=== PATIENT | male | born 1965 | race Caucasian/White ===

== ENCOUNTER 2020-08-19 11:20 | Emergency (ER) | payer BC, SELFPAY ==
[2020-08-19 11:29] VITALS: BP 176/96; PULSE 82; RESP 18; TEMP 37.1; O2SAT 96; BMI 29.8
--- NOTE | 2020-08-19 11:38 | W.ED.FALL ---
HPI - Fall General: Chief Complaint: Fall Stated Complaint: FALL, RIB PAIN Time Seen by Provider: 08/19/20 11:38 Source: patient Mode of arrival: ambulatory Limitations: no limitations History of Present Illness: HPI Narrative: Patient reports about 1 hour prior to arrival he slipped and fell at home landing on his left side. Patient since then has had left rib pain. Patient denies any other injury. Patient denies any routine medications. complaint: fall Onset (ago): minute(s) Fall from: standing Fall witnessed: no Place fall occurred: home Loss of consciousness: None Prolonged down time: no Symptoms prior to fall: none Context: tripped/slipped Location of injury: chest (Left rib) Severity: severe Quality: sharp Review of Systems General: Reports: 10 or more systems reviewed and unremarkable except in HPI and below Musc: Reports: other (Left rib pain) PFS ED PFSH: Social History Smoking and tobacco status: never smoked Physical Exam Const: COMMON NORMALS: no acute distress and patient oriented x3 GENERAL APPEARANCE: cooperative HENMT: COMMON NORMALS: normocephalic and Normal external nose present HEAD & SCALP: normal to inspection and normocephalic NOSE: Normal external nose present MOUTH: Normal oral and palatal mucosa present Eye: GENERAL EYE: appearance normal, both eyes and all related structures Neck/C-Spine: COMMON NORMALS: full ROM Chest: COMMONS NORMALS: normal inspection of the chest CHEST: Yes localized rib tenderness with anteroposterior compression (Left lower ribs) Breast/axilla inspection: Yes no chest deformity, asymmetry, normal contours, no nodules, masses, tenderness Resp: COMMON NORMALS: normal respiratory effort EFFORT & INSPECTION: Yes able to speak in complete sentences Cardio: COMMON NORMALS: regular rate and regular rhythm RATE: regular rate RHYTHM: regular rhythm GI: COMMON NORMALS: non-tender Back/Pelvis: COMMON NORMALS: thoracic and lumbar spine normal to inspection Extremity: COMMON NORMALS: normal to inspection Neuro: COMMON NORMALS: patient oriented x3 and moves all extremities Psych: COMMON NORMALS: mental status grossly normal and cooperative Skin: COMMON NORMALS: no rashes or lesions noted GENERAL SKIN EXAM: no rashes or lesions noted Course Vital Signs: Vital signs: Vital Signs Temperature 98.7 F 08/19/20 11:29 Pulse Rate 82 08/19/20 11:29 Respiratory Rate 18 08/19/20 11:29 Blood Pressure 176/96 08/19/20 11:29 Pulse Oximetry 96 08/19/20 11:29 MDM - Fall MDM Narrative: Medical decision making narrative: 55-year-old male patient comes in with injury to the left rib area. On exam patient is alert oriented. Patient has anterior rib tenderness. Lungs are clear to auscultation. Abdomen soft nontender. Differential diagnosis includes fracture, contusion, sprain. X-ray shows a fracture of the fourth or fifth rib anteriorly. No sign of pneumothorax. Reviewed exam with patient with recommendations for treatment and follow-up. Patient reported understanding and agreed to plan. Patient was medicated with hydrocodone with improvement in pain. Patient will be continued on hydrocodone and encouraged to use acetaminophen or ibuprofen for breakthrough pain. Patient stated understanding agreed to plan. Discharge Plan Discharge Patient Disposition: Home Clinical Impression: Fracture of rib Qualifiers: Encounter type: initial encounter Rib fracture type: single rib Fracture type: closed Laterality: left Qualified Code(s): S22.32XA - Fracture of one rib, left side, initial encounter for closed fracture Condition: Stable Prescriptions: New hydrocodone-acetaminophen 7.5-325 mg tablet 1 tab PO Q6H PRN (Reason: pain) Qty: 14 RF: 0 No Action lisinopril 10 mg tablet 10 mg PO DAILY RF: 0 sildenafil (pulm.hypertension) 20 mg tablet 20 - 40 mg PO PRN RF: 0 Discharge Orders: Discharge ED (Routine); Ordered 08/19/20 Ordered By: Skip Castillo Referrals: Laura Davidson FNP [Primary Care Provider] - Discharge Diet: Usual diet Discharge Activity: Increase activity as tolerated Patient Instructions: Rib Fracture (ED), Opioid Safety Activity Restrictions/Additional Instructions: Activity as tolerated. Use acetaminophen and ibuprofen for pain control. Use hydrocodone with acetaminophen for breakthrough pain. Use ice or heat to the area for further pain relief. Drink plenty of water with medication. Follow-up with primary care as needed. Return to the ER for new concerns. Coding Level of Care Code ED Nc Manager for [facility] Fwd Exam Comprehensive
--- NOTE | 2020-08-19 11:41 | XRR_ITS ---
PROCEDURE INFORMATION: Exam: XR Left Ribs with PA Chest Exam date and time: 08/19/2020 12:12 PM Age: 55 years old Clinical indication: Pain and injury or trauma; Fall; Rib area, left side; Blunt trauma; Chest wall pain; Additional info: Fall, left rib pain TECHNIQUE: Imaging protocol: XR Left ribs with PA chest. Views: 3 views COMPARISON: No relevant prior studies available. FINDINGS: Lungs: Unremarkable. No consolidation. Pleural spaces: Unremarkable. No pleural effusion. No pneumothorax. Heart/Mediastinum: Unremarkable. No cardiomegaly. Bones/joints: Unremarkable. XR/XR ribs LT mn 3V w CXR1V [id number] IMPRESSION: No acute findings.
--- NOTE | 2020-08-19 11:45 | PC.PHAR ---
PT STATES HE TAKES CARE OF HIS OWN MEDICATIONS-PT STATES HE HASNT TAKEN HIS LISINOPRIL FOR A WHILE PT STATES HE PICKED UP THE RX FILLED ON 08/09/20
[2020-08-19] MEDS: HYDROcodone-acetaminophen 10-325 mg Tablet 1 TAB PO (11:46)
== END 2020-08-19 12:47 | disposition home or self-care (01) ==
PROVIDERS: Emergency Provider Nurse Practitioner Family; PCP Nurse Practitioner
DX: S22.32XA Fracture of one rib, left side, initial encounter for closed fracture (principal); W01.0XXA Fall on same level from slipping, tripping and stumbling without subsequent striking against object, initial encounter
CPT/HCPCS: 71101; 99283

== ENCOUNTER 2021-04-26 20:33 | Inpatient (IN) | payer BC, SELFPAY ==
[2021-04-26] VITALS (19 sets, daily range): BP systolic 80–168; BP diastolic 47–91; PULSE 94–116; RESP 16–27; O2SAT 91–99; BMI 21.4
--- NOTE | 2021-04-26 | XRR_ITS ---
PROCEDURE INFORMATION: Exam: XR Left Shoulder Exam date and time: 04/26/2021 9:34 PM Age: 55 years old Clinical indication: Injury or trauma; Fall; Blunt trauma (contusions or hematomas); Shoulder; Left TECHNIQUE: Imaging protocol: XR Left shoulder. Views: 2 or more views. COMPARISON: No relevant prior studies available. FINDINGS: Anterior left humeral dislocation is noted. No acute fracture is detected on this single image. The AC joint appears intact. XR/XR shoulder LT 1V [id number] IMPRESSION: Anterior left humeral dislocation.
--- NOTE | 2021-04-26 20:35 | CTR_ITS ---
PROCEDURE INFORMATION: Exam: CT Head Without Contrast Exam date and time: 04/26/2021 8:35 PM Age: 55 years old Clinical indication: Speech disturbance and walking, difficulty and weakness, extremity; Other: Confusion; Additional info: Symptoms of acute stroke TECHNIQUE: Imaging protocol: Computed tomography of the head without contrast. Radiation optimization: All CT scans at this facility use at least one of these dose optimization techniques: automated exposure control; mA and/or kV adjustment per patient size (includes targeted exams where dose is matched to clinical indication); or iterative reconstruction. Other technique: STROKE PROTOCOL was implemented. COMPARISON: No relevant prior studies available. RADIATION DOSE METRICS: Total DLP (mGy-cm): 1165.5 FINDINGS: Brain: Normal. No hemorrhage or evidence of acute infarction. No mass effect. Cerebral ventricles: No ventriculomegaly. Paranasal sinuses: Moderate sinusitis changes are appreciated. Mastoid air cells: Visualized mastoid air cells are well aerated. Bones/joints: Chronic left nasal bone fracture is appreciated. No acute fracture is seen. Soft tissues: Unremarkable. CT/CT head wo con* [id number] IMPRESSION: No acute intracranial abnormality. Moderate sinusitis. ASSESSMENT: ASPECTS ([place] Stroke Program Early CT Score) is 10.
--- NOTE | 2021-04-26 20:35 | ECG_ITS ---
[facility] Test Date: 2021-04-26 Pat Name: Dick Lay Department: Room: Gender: Male Solution Developer: : 1965 Requested By: Madison Bravo Order Number: [id number] Reading MD: KEITH TRAN Measurements Intervals [place] Rate: 83 P: 40 WI: 173 QRS: -3 QRSD: 105 T: 5 QT: 381 QTc: 448 Interpretive Statements SINUS RHYTHM No previous ECG available for comparison Electronically Signed On 04-27-2021 19:57:13 DIALYSIS PATIENT CARE TECHNICIAN by KEITH TRAN [email or web address]
--- NOTE | 2021-04-26 20:35 | CTR_ITS ---
PROCEDURE INFORMATION: Exam: CT Angiography Head With Contrast, Arteriography Exam date and time: 04/26/2021 8:35 PM Age: 55 years old Clinical indication: Dizziness and giddiness and weakness and other: Confusion; Additional info: Eval for stroke TECHNIQUE: Imaging protocol: Computed tomography angiography of the head with contrast. Exam focused on the arteries. 3D rendering (Not supervised by radiologist): MIP and/or 3D reconstructed images were created by the technologist. Radiation optimization: All CT scans at this facility use at least one of these dose optimization techniques: automated exposure control; mA and/or kV adjustment per patient size (includes targeted exams where dose is matched to clinical indication); or iterative reconstruction. Contrast material: OMNI 350; Contrast volume: 95 ml; Contrast route: INTRAVENOUS (IV); COMPARISON: CT head wo con* [id number] 04/26/2021 8:34 PM RADIATION DOSE METRICS: Total DLP (mGy-cm): 2531.18 FINDINGS: ANTERIOR CIRCULATION: Right internal carotid artery: Unremarkable. Intracranial segment is patent with no significant stenosis. No aneurysm. Right middle cerebral artery: Unremarkable. No occlusion or significant stenosis. No aneurysm. Right anterior cerebral artery: Unremarkable. No occlusion or significant stenosis. No aneurysm. Left internal carotid artery: Unremarkable. Intracranial segment is patent with no significant stenosis. No aneurysm. Left middle cerebral artery: Unremarkable. No occlusion or significant stenosis. No aneurysm. Left anterior cerebral artery: Unremarkable. No occlusion or significant stenosis. No aneurysm. POSTERIOR CIRCULATION: Right vertebral artery: Unremarkable. No occlusion or significant stenosis. No aneurysm. Left vertebral artery: Unremarkable. No occlusion or significant stenosis. No aneurysm. Basilar artery: Unremarkable. No occlusion or significant stenosis. No aneurysm. Right posterior cerebral artery: Unremarkable. No occlusion or significant stenosis. No aneurysm. Left posterior cerebral artery: Unremarkable. No occlusion or significant stenosis. No aneurysm. IMPRESSION: Patent intracranial arteries. PROCEDURE INFORMATION: Exam: CT Angiography Neck With Contrast Exam date and time: 04/26/2021 8:35 PM Age: 55 years old Clinical indication: Dizziness and giddiness and weakness and other: Confusion; Additional info: Eval for stroke TECHNIQUE: Imaging protocol: Computed tomography angiography of the neck with contrast. 3D rendering (Not supervised by radiologist): MIP and/or 3D reconstructed images were created by the technologist. Radiation optimization: All CT scans at this facility use at least one of these dose optimization techniques: automated exposure control; mA and/or kV adjustment per patient size (includes targeted exams where dose is matched to clinical indication); or iterative reconstruction. Contrast material: OMNI 350; Contrast volume: 95 ml; Contrast route: INTRAVENOUS (IV); COMPARISON: CT head wo con* [id number] 04/26/2021 8:34 PM RADIATION DOSE METRICS: Total DLP (mGy-cm): 2531.18 FINDINGS: Right common carotid artery: No stenosis. No dissection or occlusion. Right internal carotid artery: No stenosis of the extracranial segment. No dissection or occlusion. Right external carotid artery: No occlusion or stenosis of the origin. Left common carotid artery: No stenosis. No dissection or occlusion. Left internal carotid artery: No stenosis of the extracranial segment. No dissection or occlusion. Left external carotid artery: No occlusion or stenosis of the origin. Right vertebral artery: No stenosis. No dissection or occlusion. Left vertebral artery: No stenosis. No dissection or occlusion. Lymph nodes: Several mildly prominent mediastinal lymph nodes are appreciated. Soft tissues: Normal. No significant soft tissue swelling. Bones/joints: No acute fracture. Lungs: Small patchy opacities are seen in both upper lobes which may be early pneumonia. A calcified granuloma is also present in the right upper lobe. CT/CT angio headneck* [id number] IMPRESSION: 1. Patent neck carotid and vertebral arteries. 2. Possible early bilateral upper lobe pneumonia. Correlate clinically. REFERENCES: NASCET CRITERIA. The degree of internal carotid artery stenosis is based on NASCET criteria. Normal is no stenosis. Mild is less than 50% stenosis. Moderate is 50-69% stenosis. Severe is 70% to 99% stenosis. Total occlusion is no detectable patent lumen.
[2021-04-26] MEDS: iohexol 350 mg/mL 100 mL Btl IV ×2 (20:52→21:22)
[2021-04-26] MEDS: morphine 4 mg/mL SDV 1 mL IVP (20:56)
--- NOTE | 2021-04-26 21:06 | CTR_ITS ---
PROCEDURE INFORMATION: Exam: CTA Chest With Contrast Exam date and time: 04/26/2021 9:06 PM Age: 55 years old Clinical indication: Cough and fever and shortness of breath; Additional info: Eval for pe TECHNIQUE: Imaging protocol: Computed tomographic angiography of the chest with contrast. 3D rendering (Not supervised by radiologist): MIP and/or 3D reconstructed images were created by the technologist. Radiation optimization: All CT scans at this facility use at least one of these dose optimization techniques: automated exposure control; mA and/or kV adjustment per patient size (includes targeted exams where dose is matched to clinical indication); or iterative reconstruction. Contrast material: OMNI 350; Contrast volume: 68 ml; Contrast route: INTRAVENOUS (IV); COMPARISON: CT angio headneck* [id number] 04/26/2021 8:40 PM RADIATION DOSE METRICS: Total DLP (mGy-cm): 579.96 FINDINGS: Pulmonary arteries: See Lungs finding. Aorta: Unremarkable. No aortic aneurysm. No aortic dissection. Lungs: Patient motion limits evaluation of bibasilar segmental and subsegmental pulmonary arteries. No pulmonary embolus is visualized. Several scattered small airspace opacities are noted which likely represent pneumonia. Subsegmental atelectasis is also seen in the left lung base. Pleural spaces: Unremarkable. No pneumothorax. No pleural effusion. Heart: The heart is normal in size. Lymph nodes: Mild bilateral hilar and mediastinal lymphadenopathy is appreciated Bones/joints: Mild degenerative changes are seen in the mid to lower thoracic spine. No acute fracture. Soft tissues: Unremarkable. CT/CT angio chest PE protcl [id number] IMPRESSION: 1. Mild patient motion. No pulmonary embolus is seen. 2. Multilobar pneumonia.
[2021-04-26 21:14] LABS: Glucose Point of Care 99 mg/dL (70-110)
[2021-04-26 21:19] LABS: Basophils % 0.3 %; Eosinophils # 0.1 10^3/uL (0.0-0.8); Eosinophils % 1.4 %; Hemoglobin 13.2 g/dL (11.7-16.6); Lymphocytes # 1.6 10^3/uL (0.8-4.8); Lymphocytes % 17.6 %; Mean Corpuscular HGB Conc 34.7 g/dL (30.0-36.0); Mean Corpuscular Hemoglobin 32.3 pg (28.0-34.0); Mean Corpuscular Volume 92.9 fl (80-94); Mean Platelet Volume 9.7 fL (7.4-10.4); Monocytes # 0.8 10^3/uL (0.2-0.9); Monocytes % 8.6 %; Neutrophils # 6.53 10^3/uL (1.8-7.7); Neutrophils % 71.4 %; Nucleated Red Blood Cells % 0 %; Platelet Count 334 10^3/cmm (130-400); Red Blood Count 4.09 10^6/uL (4.1-5.3); Red Cell Distribution Width 12.8 % (12.1-15.1); White Blood Count 9.2 10^3/uL (4.0-10.0)
[2021-04-26 21:35] LABS: Troponin(5th) Baseline 8 ng/L (0-15)
--- NOTE | 2021-04-26 21:40 | XRR_ITS ---
PROCEDURE INFORMATION: Exam: XR Left Shoulder Exam date and time: 04/26/2021 9:40 PM Age: 55 years old Clinical indication: Injury or trauma; Fall; Blunt trauma (contusions or hematomas); Shoulder; Left; Additional info: Post reduction TECHNIQUE: Imaging protocol: XR Left shoulder. Views: 2 or more views. COMPARISON: CR XR shoulder LT 1V [id number] 04/26/2021 8:46 PM FINDINGS: The anterior left shoulder dislocation is been reduced. The AC and glenohumeral joints are in good alignment. XR/XR shoulder LT min 2V* [id number] IMPRESSION: Interval reduction of the left shoulder dislocation.
[2021-04-26 21:42] LABS: Alanine Aminotransferase 57 U/L (0-41); Albumin Level 3.5 g/dL (3.5-5.2); Alkaline Phosphatase 67 IU/L (40-130); Aspartate Amino Transferase 35 U/L (0-40); Blood Urea Nitrogen 17 mg/dL (6-20); Calcium 7.7 mg/dL (8.5-10.5); Carbon Dioxide 20 mmol/L (22-29); Chloride 102 mmol/L (98-107); Glomerular Filtration Rate 100.7 mL/min (90-130); Glucose 106 mg/dL (65-115); INR 0.98 (0.8-1.2); Osmolality Calculated 290 mOsm/kg (285-295); Sodium 139 mmol/L (136-145); Total Bilirubin 0.2 mg/dL (0.15-1.2); Total Protein 5.5 g/dL (6.6-8.7)
[2021-04-26 21:43] LABS: Anion Gap 20.8 (5-19); Partial Thromboplastin Time 24.8 SECONDS (23.9-36.7); Potassium 3.8 mmol/L (3.5-5.1)
--- NOTE | 2021-04-26 21:51 | W.ED.GENADLT ---
HPI - General Adult General: Chief complaint: Neuro Symptoms/Deficit Stated complaint: stroke like symptoms Time Seen by Provider: 04/26/21 20:36 History of Present Illness: HPI narrative: Patient a 55-year-old male with recent history of COVID diagnosed on 04/17/2021 presenting to the emergency room for evaluation of new onset of seizure. Patient was walking from the kitchen to the living room when he suddenly collapsed to the ground and had episode of witnessed tonic-clonic seizure. Seizure episode lasted for 2 minutes. Patient's then contacted her neighbor who happens to be a physician and brought the patient to the emergency room. I will, patient is confused altered. EMS decided to activate a stroke alert. She has no focal deficit per EMS but continues to be altered with concern for possible brain bleed. Per , patient has never had a history of seizures. Patient continues to be confused on arrival but moving all but the L upper extremity. He is complaining of left shoulder pain. No other focal complaints on arrival to the ED. Onset:10 minutes ago Duration:10 minutes Location:home Severity:moderate/severe Associated symptoms: Deny chest pain, dyspnea, nausea, rash, palpitations or vomiting Review of Systems Const: Denies: fever(s) or chills Eyes: Denies: change in vision ENMT: Denies: mouth pain Card: Denies: chest pain or palpitations Resp: Denies: dyspnea or non-productive cough GI: Denies: abdominal pain, nausea, vomiting or diarrhea : Denies: dysuria Musc: Reports: extremity pain (L shoulder pain) Skin/Breast: Denies: rash or new lesions Neuro: Reports: other (confusion, altered mental status, + seizure) Cecilio/Lymph: Denies: easy bruising PFS ED PFSH: Social History Smoking and tobacco status: never smoked Physical Exam Const: COMMON NORMALS: alert HENMT: COMMON NORMALS: atraumatic HEAD & SCALP: atraumatic MOUTH: moist mucous membranes not abnormal Eye: COMMON NORMALS: EOMs intact bilaterally and conjunctivae normal CONJUNCTIVA: Yes conjunctivae normal Neck/C-Spine: COMMON NORMALS: full ROM and supple Resp: COMMON NORMALS: normal respiratory effort and clear to auscultation bilaterally AUSCULTATION: clear to auscultation bilaterally Cardio: COMMON NORMALS: regular rate RATE: regular rate GI: COMMON NORMALS: Soft to palpation and non-tender PALPATION: Yes Soft to palpation Extremity: COMMON NORMALS: negative for full ROM (+Gross L shoulder deformity and dislocation, inability to range the L shoul) Neuro: SENSORIUM/ORIENTATION: Yes alert MOTOR EXAM: Other motor observations present (AAOX2, AMS, moving all extremities (other than the L arm)) Psych: SPEECH: Yes incoherent MOOD & AFFECT: Yes Other affect and mood findings present (unable to assess given AMS) Procedures Central Line Placement Left Femoral: Time Out Performed: Yes Patient Placed on Monitor/Pulse Ox: Yes MD Prep: mask, gown and gloves Central Line Prep: Povidone-Iodine 1% Ultrasound Used for Placement: Yes Central Line Lumen Inserted: triple Post Procedure: sutured in place, good blood return, all ports aspirated, flushed, capped and sterile dressing applied Post Procedure X-Ray: tip of catheter in good position Patient Tolerated Procedure: well Complications: none Intubation Time out performed: Yes sedative: other (propofol) Mg Given: 100 paralytic: Succinylcholine Mg Given: 100 Laryngoscope: Jalil ET Tube Size: 7.5 ET Tube Uncuffed: Yes Tube Secured Depth (cm): 22 Tube Secured Location: teeth Tube Placement Confirmation: visualized tube passing through cords, equal breath sounds bilaterally and confirmation by capnometry Patient Tolerated Procedure: well Intubation Complications: none Lumbar Puncture Time Out Performed: Yes Patient Position: left lateral decubitus Skin Prep: Povidone-Iodine 1% Spinal Needle Gauge: 22G Interspace Used: L4-L5 Fluid Initially Obtained: other (grossly bloody) Complications: other (grossly bloody tap and sample clotted prior to running on the CSF ) Additional Comments: At 11:15 PM, I have attempted an LP. He was cleared with chlorhexadine three times. I have attempted lumbar puncture at the L4-L5 space five times. On the last time, there is grossly bloody drainage emanated from the catheter. The sample was then clotted and was unable to run the sample. I suspect that this is likely blood from the lumbar plexus and I was unable to access the CSF. Orthopedic Joint Reduction Joint #1: Time Out Performed: Yes Side: left Joint Reduction Location: shoulder Analgesia: other (4mg of morphine) Shoulder Technique Used (if applicable): other (Park technique) Post-reduction neuro exam: intact Post-reduction vascular: intact Post Reduction X-Ray Obtained: Yes Post Reduction X-Ray Results: reduced Splint Applied: No (patient is intubated and sedated) Patient Tolerated Procedure: well and no complications Course Vital Signs: Vital signs: Vital Signs Pulse Rate 110 H 04/26/21 20:35 Respiratory Rate 22 H 04/26/21 22:35 Blood Pressure 123/71 04/26/21 20:35 MDM - General Adult MDM Narrative: Medical decision making narrative: 55-year-old male presenting to the emergency room for new onset of seizure and left-sided shoulder pain. On exam, patient has a dislocation of the left shoulder. Neurovascular exam of the left affected side intact. History and exam concerning for new onset of seizure and L sided shoulder dislocation. Workup: CBC, BMP, Troponin, BNP, ECG, CXR for aspiration, CT/CTA head neck Intervention: IVF Shortly after arrival, patient was noted to be mildly hypotensive and required 2 L of fluids. Patient's blood pressure improved without any other intervention. Continues to be mildly confused but becomes more awake. He had no neurovascular deficit on the left side prior to the reduction. XR of the left upper extremity showed anterior dislocation of the shoulder. Imaging studies are negative for any acute brain bleed or aneurysm. I bedside reduction of the left anterior shoulder as location with the Park technique. Patient did nto need procedural sedation. He received 4mg of morphine prior ot the reduction Neurovascular exam post-reduction is intact. XR shoulder post reduction showed proper anterior shoulder reduction. Post-reduction, patient continues to be mildly hypoxic to 89 to 90% with this tachycardia signed passing out at the history of COVID, decision was made to order CTA to rule out PE. Patient not have any large pulmonary embolism. Around 10pm, patient suddenly went into another episode of seizure patient received 5 mg of Versed x2 without significant improvement. Patient is noted to be foaming around the mouth with blood around the lips. Patient again is unresponsive for 4 minutes. Decision was made to intubate given concerns for status epilepticus patient did not have any clear return to baseline. Refer to the procedure note for the intubation. Post intubation, patient had a central line was placed. Please refer to the procedure note for central line placement was performed currently pending. Given concern of subconvussive seizure, patient received 100 mg of ketamine IV, Keppra 1 g over 15 minutes, and is currently on a propofol and midazolam drip. S/p vancomycin and ceftriaxone for meningitis coverage. Attempted to perform a lumbar puncture but was not successful after 5 attempts. Please refer to the procedure note. Case was discussed extensively with patient's family and with recommendation for transfer to another facility. Case signed out to Dr. Gonzales pending transfer to outside hospital for status epilepticus workup. Lab Data: Labs: Lab Results 04/26/21 04/26/21 04/26/21 21:07 21:10 21:10 WBC 9.2 10^3/uL 10^3/ uL (4.0-10.0) RBC 4.09 10^6/uL L 10 ^6/uL (4.1-5.3) Hgb 13.2 g/dL g/dL (11.7-16.6) Hct 38.0 % L % (42.0-52.0) MCV 92.9 fl fl (80-94) MCH 32.3 pg pg (28.0-34.0) MCHC 34.7 g/dL g/dL (30.0-36.0) RDW 12.8 % % (12.1-15.1) Plt Count 334 10^3/cmm 10^3 /cmm (130-400) MPV 9.7 fL fL (7.4-10.4) Neut % (Auto) 71.4 % % Lymph % (Auto) 17.6 % % [place] % (Auto) 8.6 % % Eos % (Auto) 1.4 % % Baso % (Auto) 0.3 % % Neut # (Auto) 6.53 10^3/uL 10^3 /uL (1.8-7.7) Lymph # (Auto) 1.6 10^3/uL 10^3/ uL (0.8-4.8) [place] # (Auto) 0.8 10^3/uL 10^3/ uL (0.2-0.9) Eos # (Auto) 0.1 10^3/uL 10^3/ uL (0.0-0.8) Baso # (Auto) 0.0 10^3/uL 10^3/ uL (0.0-0.1) Nucleated RBC % (a uto) 0 % % Nucleated RBCs # 0.0 /100WBC /100W BC PT 13.30 SECONDS SEC ONDS (12.1-14.9) INR 0.98 (0.8-1.2) APTT 24.8 SECONDS SECO NDS (23.9-36.7) Sodium Potassium Chloride Carbon Dioxide Anion Gap BUN Creatinine GFR Calculation Glucose POC Glucose 99 mg/dL mg/dL (70-110) Calculated Osmolal ity Calcium Total Bilirubin AST ALT Alkaline Phosphata se Troponin T Baselin e Total Protein Albumin Globulin 04/26/21 04/26/21 21:10 21:10 WBC RBC Hgb Hct MCV MCH MCHC RDW Plt Count MPV Neut % (Auto) Lymph % (Auto) [place] % (Auto) Eos % (Auto) Baso % (Auto) Neut # (Auto) Lymph # (Auto) [place] # (Auto) Eos # (Auto) Baso # (Auto) Nucleated RBC % (a uto) Nucleated RBCs # PT INR APTT Sodium 139 mmol/L mmol/L (136-145) Potassium 3.8 mmol/L mmol/L (3.5-5.1) Chloride 102 mmol/L mmol/L (98-107) Carbon Dioxide 20 mmol/L L mmol/ L (22-29) Anion Gap 20.8 H (5-19) BUN 17 mg/dL mg/dL (6-20) Creatinine 0.8 mg/dL mg/dL (0.7-1.2) GFR Calculation 100.7 mL/min mL/m in (90-130) Glucose 106 mg/dL mg/dL (65-115) POC Glucose Calculated Osmolal ity 290 mOsm/kg mOsm/ kg (285-295) Calcium 7.7 mg/dL L mg/dL (8.5-10.5) Total Bilirubin 0.2 mg/dL mg/dL (0.15-1.2) AST 35 U/L U/L (0-40) ALT 57 U/L H U/L (0-41) Alkaline Phosphata se 67 IU/L IU/L (40-130) Troponin T Baselin e 8 ng/L ng/L (0-15) Total Protein 5.5 g/dL L g/dL (6.6-8.7) Albumin 3.5 g/dL g/dL (3.5-5.2) Globulin 2.0 g/dL g/dL (1.3-4.6) Imaging Data^: Other Imaging: Radiologist's impression: [address] [place], [place] [address]XMwk ReportSigned Patient: Dick Lay #: [id number]: 1965Acct#:[id number]/Sex: 55 / MADM Date: 04/26/21Loc: ERRoom/Bed:Attending Dr: Ordering Provider/Ordering MD: Madison Bravo MD Date of Service: 04/26/21 Procedure(s): XR chest 1V portable [id number] Accession Number(s): [id number] Report Number: [id number] PROCEDURE INFORMATION: Exam: XR Chest Exam date and time: 04/26/2021 10:19 PM Age: 55 years old Clinical indication: Device placement; Other: Ett and og; Additional info: Post-intubation TECHNIQUE: Imaging protocol: XR of the chest. Views: 1 view. COMPARISON: CT angio chest PE prot [id number] 04/26/2021 9:23 PM FINDINGS: An ETT is present terminating 5 cm above the sukhdev. The orogastric tube tip is in the stomach. No other significant change. XR/XR chest 1V portable [id number] IMPRESSION: See above. Dictated By:Rashaun Lara MDSigned By:Rashaun Lara MDSigned Date/Time:04/26/218DD/ [address] [address]ZRgy ReportSigned Patient: Dick Lay #: [id number]: 1965Acct#:[id number]/Sex: 55 / MADM Date: 04/26/21Loc: ERRoom/Bed:Attending Dr: Ordering Provider/Ordering MD: Madison Bravo MD Date of Service: 04/26/21 Procedure(s): XR shoulder LT min 2V* [id number] Accession Number(s): [id number] Report Number: [id number] PROCEDURE INFORMATION: Exam: XR Left Shoulder Exam date and time: 04/26/2021 9:40 PM Age: 55 years old Clinical indication: Injury or trauma; Fall; Blunt trauma (contusions or hematomas); Shoulder; Left; Additional info: Post reduction TECHNIQUE: Imaging protocol: XR Left shoulder. Views: 2 or more views. COMPARISON: CR XR shoulder LT 1V [id number] 04/26/2021 8:46 PM FINDINGS: The anterior left shoulder dislocation is been reduced. The AC and glenohumeral joints are in good alignment. XR/XR shoulder LT min 2V* [id number] IMPRESSION: Interval reduction of the left shoulder dislocation. Dictated By:Rashaun Lara MDSigned By:Rashaun Lara MDSigned Date/Time:04/26/21/ [address] [address]BM Scan ReportSigned Patient: Dick Lay #: [id number]: 1965Acct#:[id number]/Sex: 55 / MADM Date: 04/26/21Loc: ERRoom/Bed:Attending Dr: Ordering Provider/Ordering MD: Madison Bravo MD Date of Service: 04/26/21 Procedure(s): CT angio chest PE protcl [id number] Accession Number(s): [id number] Report Number: [id number] PROCEDURE INFORMATION: Exam: CTA Chest With Contrast Exam date and time: 04/26/2021 9:06 PM Age: 55 years old Clinical indication: Cough and fever and shortness of breath; Additional info: Eval for pe TECHNIQUE: Imaging protocol: Computed tomographic angiography of the chest with contrast. 3D rendering (Not supervised by radiologist): MIP and/or 3D reconstructed images were created by the technologist. Radiation optimization: All CT scans at this facility use at least one of these dose optimization techniques: automated exposure control; mA and/or kV adjustment per patient size (includes targeted exams where dose is matched to clinical indication); or iterative reconstruction. Contrast material: OMNI 350; Contrast volume: 68 ml; Contrast route: INTRAVENOUS (IV); COMPARISON: CT angio headneck* [id number] 04/26/2021 8:40 PM RADIATION DOSE METRICS: Total DLP (mGy-cm): 579.96 FINDINGS: Pulmonary arteries: See Lungs finding. Aorta: Unremarkable. No aortic aneurysm. No aortic dissection. Lungs: Patient motion limits evaluation of bibasilar segmental and subsegmental pulmonary arteries. No pulmonary embolus is visualized. Several scattered small airspace opacities are noted which likely represent pneumonia. Subsegmental atelectasis is also seen in the left lung base. Pleural spaces: Unremarkable. No pneumothorax. No pleural effusion. Heart: The heart is normal in size. Lymph nodes: Mild bilateral hilar and mediastinal lymphadenopathy is appreciated Bones/joints: Mild degenerative changes are seen in the mid to lower thoracic spine. No acute fracture. Soft tissues: Unremarkable. CT/CT angio chest PE protcl [id number] IMPRESSION: 1. Mild patient motion. No pulmonary embolus is seen. 2. Multilobar pneumonia. Dictated By:Rashaun Lara MDSigned By:Rashaun Lara MDSigned Date/Time:04/26/212146DD/ [address] [address]LB Scan ReportSigned Patient: Dick Lay #: [id number]: 1965Acct#:[id number]/Sex: 55 / MADM Date: 04/26/21Loc: ERRoom/Bed:Attending Dr: Ordering Provider/Ordering MD: Madison Bravo MD Date of Service: 04/26/21 Procedure(s): CT angio headneck* [id number] Accession Number(s): [id number] Report Number: [id number] PROCEDURE INFORMATION: Exam: CT Angiography Head With Contrast, Arteriography Exam date and time: 04/26/2021 8:35 PM Age: 55 years old Clinical indication: Dizziness and giddiness and weakness and other: Confusion; Additional info: Eval for stroke TECHNIQUE: Imaging protocol: Computed tomography angiography of the head with contrast. Exam focused on the arteries. 3D rendering (Not supervised by radiologist): MIP and/or 3D reconstructed images were created by the technologist. Radiation optimization: All CT scans at this facility use at least one of these dose optimization techniques: automated exposure control; mA and/or kV adjustment per patient size (includes targeted exams where dose is matched to clinical indication); or iterative reconstruction. Contrast material: OMNI 350; Contrast volume: 95 ml; Contrast route: INTRAVENOUS (IV); COMPARISON: CT head wo con* [id number] 04/26/2021 8:34 PM RADIATION DOSE METRICS: Total DLP (mGy-cm): 2531.18 FINDINGS: ANTERIOR CIRCULATION: Right internal carotid artery: Unremarkable. Intracranial segment is patent with no significant stenosis. No aneurysm. Right middle cerebral artery: Unremarkable. No occlusion or significant stenosis. No aneurysm. Right anterior cerebral artery: Unremarkable. No occlusion or significant stenosis. No aneurysm. Left internal carotid artery: Unremarkable. Intracranial segment is patent with no significant stenosis. No aneurysm. Left middle cerebral artery: Unremarkable. No occlusion or significant stenosis. No aneurysm. Left anterior cerebral artery: Unremarkable. No occlusion or significant stenosis. No aneurysm. POSTERIOR CIRCULATION: Right vertebral artery: Unremarkable. No occlusion or significant stenosis. No aneurysm. Left vertebral artery: Unremarkable. No occlusion or significant stenosis. No aneurysm. Basilar artery: Unremarkable. No occlusion or significant stenosis. No aneurysm. Right posterior cerebral artery: Unremarkable. No occlusion or significant stenosis. No aneurysm. Left posterior cerebral artery: Unremarkable. No occlusion or significant stenosis. No aneurysm. IMPRESSION: Patent intracranial arteries. PROCEDURE INFORMATION: Exam: CT Angiography Neck With Contrast Exam date and time: 04/26/2021 8:35 PM Age: 55 years old Clinical indication: Dizziness and giddiness and weakness and other: Confusion; Additional info: Eval for stroke TECHNIQUE: Imaging protocol: Computed tomography angiography of the neck with contrast. 3D rendering (Not supervised by radiologist): MIP and/or 3D reconstructed images were created by the technologist. Radiation optimization: All CT scans at this facility use at least one of these dose optimization techniques: automated exposure control; mA and/or kV adjustment per patient size (includes targeted exams where dose is matched to clinical indication); or iterative reconstruction. Contrast material: OMNI 350; Contrast volume: 95 ml; Contrast route: INTRAVENOUS (IV); COMPARISON: CT head con* [id number] 04/26/2021 8:34 PM RADIATION DOSE METRICS: Total DLP (mGy-cm): 2531.18 FINDINGS: Right common carotid artery: No stenosis. No dissection or occlusion. Right internal carotid artery: No stenosis of the extracranial segment. No dissection or occlusion. Right external carotid artery: No occlusion or stenosis of the origin. Left common carotid artery: No stenosis. No dissection or occlusion. Left internal carotid artery: No stenosis of the extracranial segment. No dissection or occlusion. Left external carotid artery: No occlusion or stenosis of the origin. Right vertebral artery: No stenosis. No dissection or occlusion. Left vertebral artery: No stenosis. No dissection or occlusion. Lymph nodes: Several mildly prominent mediastinal lymph nodes are appreciated. Soft tissues: Normal. No significant soft tissue swelling. Bones/joints: No acute fracture. Lungs: Small patchy opacities are seen in both upper lobes which may be early pneumonia. A calcified granuloma is also present in the right upper lobe. CT/CT angio headneck* [id number] IMPRESSION: 1. Patent neck carotid and vertebral arteries. 2. Possible early bilateral upper lobe pneumonia. Correlate clinically. REFERENCES: NASCET CRITERIA. The degree of internal carotid artery stenosis is based on NASCET criteria. Normal is no stenosis. Mild is less than 50% stenosis. Moderate is 50-69% stenosis. Severe is 70% to 99% stenosis. Total occlusion is no detectable patent lumen. Dictated By:Rashaun Laar MDSigned By:Rashaun Lara MDSigned Date/Time:04/26/212106DD/ [address] [address]AJ Scan ReportSigned Patient: Dick Lay #: [id number]: 1965Acct#:[id number]/Sex: 55 / MADM Date: 04/26/21Loc: ERRoom/Bed:Attending Dr: Ordering Provider/Ordering MD: Madison Bravo MD Date of Service: 04/26/21 Procedure(s): CT head wo con* [id number] Accession Number(s): [id number] Report Number: [id number] PROCEDURE INFORMATION: Exam: CT Head Without Contrast Exam date and time: 04/26/2021 8:35 PM Age: 55 years old Clinical indication: Speech disturbance and walking, difficulty and weakness, extremity; Other: Confusion; Additional info: Symptoms of acute stroke TECHNIQUE: Imaging protocol: Computed tomography of the head without contrast. Radiation optimization: All CT scans at this facility use at least one of these dose optimization techniques: automated exposure control; mA and/or kV adjustment per patient size (includes targeted exams where dose is matched to clinical indication); or iterative reconstruction. Other technique: STROKE PROTOCOL was implemented. COMPARISON: No relevant prior studies available. RADIATION DOSE METRICS: Total DLP (mGy-cm): 1165.5 FINDINGS: Brain: Normal. No hemorrhage or evidence of acute infarction. No mass effect. Cerebral ventricles: No ventriculomegaly. Paranasal sinuses: Moderate sinusitis changes are appreciated. Mastoid air cells: Visualized mastoid air cells are well aerated. Bones/joints: Chronic left nasal bone fracture is appreciated. No acute fracture is seen. Soft tissues: Unremarkable. CT/CT head wo con* [id number] IMPRESSION: No acute intracranial abnormality. Moderate sinusitis. ASSESSMENT: ASPECTS ([place] Stroke Program Early CT Score) is 10. Dictated By:Rashaun Lara MDSigned By:Rashaun Lara MDSigned Date/Time:04/26/212106DD/ 34 Critical Care Time Critical Care Time: Critical Care Time: Yes Total Critical Care Time: 35 Attestation: The high probability of a clinically significant, sudden or life threatening deterioration of the patient's neurological system(s) required my full and direct attention, intervention and personal management. The critical care time is as shown. This time is in addition to time spent performing any reported procedures but includes the following: [x] Data and vital sign review and interpretation [x] Patient assessment, examination and intervention [x] Documentation [x] Medication orders and management Discharge Plan Discharge Patient Disposition: Transfer to ED Clinical Impression: Altered mental status, Dislocated shoulder, Acute confusion, Grand mal status, epileptic Condition: Stable Prescriptions: No Action lisinopril 10 mg tablet 10 mg PO DAILY RF: 0 sildenafil (pulm.hypertension) 20 mg tablet 20 - 40 mg PO PRN RF: 0 hydrocodone-acetaminophen 7.5-325 mg tablet 1 tab PO Q6H PRN (Reason: pain) Qty: 14 RF: 0 Referrals: [place],Laura Rhonda, REHAB NURSE [Primary Care Provider] - Coding Level of Care Code ED Foreclosure Field Inspector for Chg Fwd Exam Comprehensive
[2021-04-26] MEDS: midazolam 1 mg/mL INJ 2 mL 6 MG ×2 (22:00)
[2021-04-26] MEDS: ketorolac 30 mg/mL INJ IVP (22:02)
--- NOTE | 2021-04-26 22:19 | CTR_ITS ---
PROCEDURE INFORMATION: Exam: CT Head Without Contrast Exam date and time: 04/26/2021 10:19 PM Age: 55 years old Clinical indication: Patient HX: Sudden onset of seizure activity. Intubated. ; Additional info: Status epilepticus TECHNIQUE: Imaging protocol: Computed tomography of the head without contrast. Radiation optimization: All CT scans at this facility use at least one of these dose optimization techniques: automated exposure control; mA and/or kV adjustment per patient size (includes targeted exams where dose is matched to clinical indication); or iterative reconstruction. COMPARISON: CT head wo con* [id number] 04/26/2021 8:34 PM RADIATION DOSE METRICS: Total DLP (mGy-cm): 735.04 FINDINGS: No significant change compared to the prior exam. No hemorrhage or evidence of acute infarction. Sinusitis changes are again seen. CT/CT head wo con* [id number] IMPRESSION: No acute intracranial abnormality.
--- NOTE | 2021-04-26 22:19 | XRR_ITS ---
PROCEDURE INFORMATION: Exam: XR Chest Exam date and time: 04/26/2021 10:19 PM Age: 55 years old Clinical indication: Device placement; Other: Ett and og; Additional info: Post-intubation TECHNIQUE: Imaging protocol: XR of the chest. Views: 1 view. COMPARISON: CT angio chest PE protcl [id number] 04/26/2021 9:23 PM FINDINGS: An ETT is present terminating 5 cm above the sukhdev. The orogastric tube tip is in the stomach. No other significant change. XR/XR chest 1V portable [id number] IMPRESSION: See above.
[2021-04-26] MEDS: propofol 10 mg/mL SDV 20 mL 100 MG IVP (22:20)
[2021-04-26] MEDS: succinylcholine 20 mg/mL SDV 10mL IVP (22:30)
[2021-04-26] MEDS: propofol 1,000 MG/100 ML INJ 31.9 MG IV (22:35)
[2021-04-27] VITALS (171 sets, daily range): BP systolic 94–144; BP diastolic 58–104; PULSE 73–105; RESP 8–31; TEMP 36.9; O2SAT 91–99
[2021-04-27 00:14] LABS: Troponin 5 2HR 17.78 ng/L (0-15); Troponin 5 2HR Delta 9.78 ABS# (0-10)
[2021-04-27 00:20] LABS: ABG PCO2 39.2 mmHg (35-45); ABG PH Result 7.36 (7.35-7.45); Arterial Blood Gas Hematocrit 41.5 % (42-52); Blood Gas Allen Test Pos; Blood Gas Sample Site Radial, right; Blood Gas Sample Type Arterial; HCO3 ABG 22.2 mmol/L (22-26); Oxygen Device VENT
[2021-04-27] MEDS: cefTRIAXone 2,000 MG in sodium chloride 0.9% (plus) 50 ML 100 MG IV (01:00)
[2021-04-27 01:13] LABS: Add Urine Microscopic? YES; Bilirubin Urine Neg (Negative); Blood Urine 2+ (Negative); Glucose Urine UA Norm (Normal); Ketones Urine Negative (Negative); Leukocyte Esterase Urine Negative (Negative); Nitrate Urine Negative (Negative); Protein Urine 1+ (Negative); Urine Color Yellow (Yellow); Urobilinogen Urine Norm (Negative); pH Urine 6.5 (5-7)
[2021-04-27 01:22] LABS: Amphetamines Screen Urine Negative (Negative); Barbiturates Screen Urine Negative (Negative); Benzodiazepines Screen Urine Negative (Negative); Cocaine Screen Urine Positive (Negative); Opiate Screen Urine Positive (Negative); PCP Screen Urine Negative (Negative); THC Screen Urine Negative (Negative)
[2021-04-27 01:27] LABS: Add Urine Culture? No; Bacteria Urine 1+ /hpf; RBC Urine 0-4 /hpf (0-2); Squamous Epithelial Cell Urine 0-4 /hpf (0-5); Uric Acid Crystals Urine 55-80 /hpf; WBC Urine 0-4 /hpf (0-5)
[2021-04-27] MEDS: vancomycin 1,000 MG in sodium chloride 0.9% 250 ML 250 MG IV (02:50)
--- NOTE | 2021-04-27 02:56 | ECG_ITS ---
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
[2021-04-27] MEDS: propofol 1,000 MG/100 ML INJ 32.25 MG IV ×4 (03:00→14:19)
[2021-04-27] MEDS: propofol 1,000 MG/100 ML INJ 31.9 MG (04:25)
--- NOTE | 2021-04-27 07:46 | W.ED.NEUROSD ---
HPI - Neuro Symptoms/Deficit General: Chief Complaint: Neuro Symptoms/Deficit Stated Complaint: stroke like symptoms Time Seen by Provider: 04/26/21 20:36 History of Present Illness: HPI Narrative: Care assumed at change of shift. Patient is waiting for facility to transfer to this point. Had discussed with Dr. Gonzales at change of shift patient continues on sedation propofol reordered. [facility] ED PFSH: Medical History Hypertension Surgical History No pertinent past surgical history Family History Other No significant active problems Social History Smoking and tobacco status: never smoked Alcohol intake: current Alcohol intake frequency: holidays/special occasions only Housing: House Course Vital Signs: Vital signs: Vital Signs Temperature 99.1 F 04/29/21 08:30 Pulse Rate 117 H 04/29/21 13:15 Respiratory Rate 14 04/29/21 13:15 Blood Pressure 121/78 04/29/21 12:15 Pulse Oximetry 85 L 04/29/21 13:30 MDM - Neuro Symptoms/Deficit MDM Narrative Medical decision making narrative: Consult hospitalist for assistance with medical management until we are able to transfer. Due to current environment and pandemic transfers have been extremely difficult to secure. Hospitalist has been consulted for medical management in the emergency room. Lab Data Result diagrams: 04/29/21 13:10 04/29/21 13:10 Labs: Lab Results 04/26/21 04/26/21 04/26/21 00:08 21:07 21:10 WBC 9.2 10^3/uL 10^3/uL (4.0-10.0) RBC 4.09 10^6/uL L 10^6/uL (4.1-5.3) Hgb 13.2 g/dL g/dL (11.7-16.6) Hct 38.0 % L % (42.0-52.0) MCV 92.9 fl fl (80-94) MCH 32.3 pg pg (28.0-34.0) MCHC 34.7 g/dL g/dL (30.0-36.0) RDW 12.8 % % (12.1-15.1) Plt Count 334 10^3/cmm 10^3/cmm (130-400) MPV 9.7 fL fL (7.4-10.4) Neut % (Auto) 71.4 % % Lymph % (Auto) 17.6 % % Schley % (Auto) 8.6 % % Eos % (Auto) 1.4 % % Baso % (Auto) 0.3 % % Neut # (Auto) 6.53 10^3/uL 10^3/uL (1.8-7.7) Lymph # (Auto) 1.6 10^3/uL 10^3/uL (0.8-4.8) Schley # (Auto) 0.8 10^3/uL 10^3/uL (0.2-0.9) Eos # (Auto) 0.1 10^3/uL 10^3/uL (0.0-0.8) Baso # (Auto) 0.0 10^3/uL 10^3/uL (0.0-0.1) Nucleated RBC % (auto) 0 % % Nucleated RBCs # 0.0 /100WBC /100WBC PT INR APTT Specimen Type Arterial Sample Site Radial, right ABG pH 7.36 (7.35-7.45) ABG pCO2 39.2 mmHg mmHg (35-45) ABG pO2 173.0 mmHg H mmHg (80.0-100.0) ABG HCO3 22.2 mmol/L mmol/L (22-26) ABG Base Excess -3.0 mmol/L L mmol/L (-2.0-2.0) Valentin Test Pos Hematocrit 41.5 % L % (42-52) O2 Delivery Device Vent FiO2 100.0 % % Tidal Volume 0.50 PEEP 8.0 cmH20 cmH20 Machine Joint Cutter ID Buttr Sodium Potassium Chloride Carbon Dioxide Anion Gap BUN Creatinine GFR Calculation Glucose POC Glucose 99 mg/dL mg/dL (70-110) Calculated Osmolality Uric Acid Calcium Total Bilirubin AST ALT Alkaline Phosphatase Troponin T Baseline Troponin T 120 Minute Delta Troponin T Total Protein Albumin Globulin Urine Color Urine Appearance Urine pH Ur Specific [place] Urine Protein Urine Glucose (UA) Urine Ketones Urine Blood Urine Nitrate Urine Bilirubin Urine Urobilinogen Ur Leukocyte Esterase Urine RBC Urine WBC Ur Squamous Epith Cells Uric Acid Crystals Amorphous Sediment Urine Bacteria Urine Opiates Screen Ur Barbiturates Screen Ur Phencyclidine Scrn Ur Amphetamines Screen U Benzodiazepines Scrn Urine Cocaine Screen U Marijuana (THC) Screen Hepatitis A IgM Ab Hep Bs Antigen Hep Bs Antibody Hep B Core Total Ab Hepatitis C Antibody HIV 1&2 Ab & HIV 1 Ag HIV 1&2 Antibody 04/26/21 04/26/21 04/26/21 21:10 21:10 21:10 WBC RBC Hgb Hct MCV MCH MCHC RDW Plt Count MPV Neut % (Auto) Lymph % (Auto) Schley % (Auto) Eos % (Auto) Baso % (Auto) Neut # (Auto) Lymph # (Auto) Schley # (Auto) Eos # (Auto) Baso # (Auto) Nucleated RBC % (auto) Nucleated RBCs # PT 13.30 SECONDS SECONDS (12.1-14.9) INR 0.98 (0.8-1.2) APTT 24.8 SECONDS SECONDS (23.9-36.7) Specimen Type Sample Site ABG pH ABG pCO2 ABG pO2 ABG HCO3 ABG Base Excess Valentin Test Hematocrit O2 Delivery Device FiO2 Tidal Volume PEEP Machine Joint Cutter ID Sodium 139 mmol/L mmol/L (136-145) Potassium 3.8 mmol/L mmol/L (3.5-5.1) Chloride 102 mmol/L mmol/L (98-107) Carbon Dioxide 20 mmol/L L mmol/L (22-29) Anion Gap 20.8 H (5-19) BUN 17 mg/dL mg/dL (6-20) Creatinine 0.8 mg/dL mg/dL (0.7-1.2) GFR Calculation 100.7 mL/min mL/min (90-130) Glucose 106 mg/dL mg/dL (65-115) POC Glucose Calculated Osmolality 290 mOsm/kg mOsm/kg (285-295) Uric Acid Calcium 7.7 mg/dL L mg/dL (8.5-10.5) Total Bilirubin 0.2 mg/dL mg/dL (0.15-1.2) AST 35 U/L U/L (0-40) ALT 57 U/L H U/L (0-41) Alkaline Phosphatase 67 IU/L IU/L (40-130) Troponin T Baseline 8 ng/L ng/L (0-15) Troponin T 120 Minute Delta Troponin T Total Protein 5.5 g/dL L g/dL (6.6-8.7) Albumin 3.5 g/dL g/dL (3.5-5.2) Globulin 2.0 g/dL g/dL (1.3-4.6) Urine Color Urine Appearance Urine pH Ur Specific [place] Urine Protein Urine Glucose (UA) Urine Ketones Urine Blood Urine Nitrate Urine Bilirubin Urine Urobilinogen Ur Leukocyte Esterase Urine RBC Urine WBC Ur Squamous Epith Cells Uric Acid Crystals Amorphous Sediment Urine Bacteria Urine Opiates Screen Ur Barbiturates Screen Ur Phencyclidine Scrn Ur Amphetamines Screen U Benzodiazepines Scrn Urine Cocaine Screen U Marijuana (THC) Screen Hepatitis A IgM Ab Hep Bs Antigen Hep Bs Antibody Hep B Core Total Ab Hepatitis C Antibody HIV 1&2 Ab & HIV 1 Ag HIV 1&2 Antibody 04/26/21 04/27/21 04/27/21 23:48 00:45 00:45 WBC RBC Hgb Hct MCV MCH MCHC RDW Plt Count MPV Neut % (Auto) Lymph % (Auto) Schley % (Auto) Eos % (Auto) Baso % (Auto) Neut # (Auto) Lymph # (Auto) Schley # (Auto) Eos # (Auto) Baso # (Auto) Nucleated RBC % (auto) Nucleated RBCs # PT INR APTT Specimen Type Sample Site ABG pH ABG pCO2 ABG pO2 ABG HCO3 ABG Base Excess Valentin Test Hematocrit O2 Delivery Device FiO2 Tidal Volume PEEP Machine Joint Cutter ID Sodium Potassium Chloride Carbon Dioxide Anion Gap BUN Creatinine GFR Calculation Glucose POC Glucose Calculated Osmolality Uric Acid Calcium Total Bilirubin AST ALT Alkaline Phosphatase Troponin T Baseline Troponin T 120 Minute 17.78 ng/L H ng/L (0-15) Delta Troponin T 9.78 ABS# ABS# (0-10) Total Protein Albumin Globulin Urine Color Yellow (Yellow) Urine Appearance Sl cloudy A (CLEAR) Urine pH 6.5 (5-7) Ur Specific [place] 1.010 (1.005-1.030) Urine Protein 1+ H (Negative) Urine Glucose (UA) Norm (Normal) Urine Ketones Negative (Negative) Urine Blood 2+ H (Negative) Urine Nitrate Negative (Negative) Urine Bilirubin Neg (Negative) Urine Urobilinogen Norm mg/dL mg/dL (Negative) Ur Leukocyte Esterase Negative (Negative) Urine RBC 0-4 /hpf H /hpf (0-2) Urine WBC 0-4 /hpf H /hpf (0-5) Ur Squamous Epith Cells 0-4 /hpf H /hpf (0-5) Uric Acid Crystals 55-80 /hpf H /hpf Amorphous Sediment Not Reportable Urine Bacteria 1+ /hpf H /hpf (NONE) Urine Opiates Screen Positive ng/mL H ng/mL (Negative) Ur Barbiturates Screen Negative ng/mL ng/mL (Negative) Ur Phencyclidine Scrn Negative ng/mL ng/mL (Negative) Ur Amphetamines Screen Negative ng/mL ng/mL (Negative) U Benzodiazepines Scrn Negative ng/mL ng/mL (Negative) Urine Cocaine Screen Positive ng/mL H ng/mL (Negative) U Marijuana (THC) Screen Negative ng/mL ng/mL (Negative) Hepatitis A IgM Ab Hep Bs Antigen Hep Bs Antibody Hep B Core Total Ab Hepatitis C Antibody HIV 1&2 Ab & HIV 1 Ag HIV 1&2 Antibody 04/27/21 04/27/21 04/27/21 09:21 09:21 09:21 WBC RBC Hgb Hct MCV MCH MCHC RDW Plt Count MPV Neut % (Auto) Lymph % (Auto) Schley % (Auto) Eos % (Auto) Baso % (Auto) Neut # (Auto) Lymph # (Auto) Schley # (Auto) Eos # (Auto) Baso # (Auto) Nucleated RBC % (auto) Nucleated RBCs # PT INR APTT Specimen Type Sample Site ABG pH ABG pCO2 ABG pO2 ABG HCO3 ABG Base Excess Valentin Test Hematocrit O2 Delivery Device FiO2 Tidal Volume PEEP Machine Joint Cutter ID Sodium Potassium Chloride Carbon Dioxide Anion Gap BUN Creatinine GFR Calculation Glucose POC Glucose Calculated Osmolality Uric Acid 5.6 mg/dL mg/dL (3.4-7.0) Calcium Total Bilirubin AST ALT Alkaline Phosphatase Troponin T Baseline Troponin T 120 Minute Delta Troponin T Total Protein Albumin Globulin Urine Color Urine Appearance Urine pH Ur Specific [place] Urine Protein Urine Glucose (UA) Urine Ketones Urine Blood Urine Nitrate Urine Bilirubin Urine Urobilinogen Ur Leukocyte Esterase Urine RBC Urine WBC Ur Squamous Epith Cells Uric Acid Crystals Amorphous Sediment Urine Bacteria Urine Opiates Screen Ur Barbiturates Screen Ur Phencyclidine Scrn Ur Amphetamines Screen U Benzodiazepines Scrn Urine Cocaine Screen U Marijuana (THC) Screen Hepatitis A IgM Ab Non-reactive (Nonreactive) Hep Bs Antigen Non-reactive (Nonreactive) Hep Bs Antibody < 3.5 L (11.5-1000) Hep B Core Total Ab Non-reactive (Nonreactive) Hepatitis C Antibody Non-reactive (Nonreactive) HIV 1&2 Ab & HIV 1 Ag Non-reactive (Non-Reactiv) HIV 1&2 Antibody Non-reactive (Non-Reactiv) 04/27/21 04/27/21 04/27/21 13:29 17:31 17:50 WBC RBC Hgb Hct MCV MCH MCHC RDW Plt Count MPV Neut % (Auto) Lymph % (Auto) Schley % (Auto) Eos % (Auto) Baso % (Auto) Neut # (Auto) Lymph # (Auto) Schley # (Auto) Eos # (Auto) Baso # (Auto) Nucleated RBC % (auto) Nucleated RBCs # PT INR APTT Specimen Type Arterial Sample Site Radial, left ABG pH 7.45 (7.35-7.45) ABG pCO2 36.1 mmHg mmHg (35-45) ABG pO2 72.5 mmHg L mmHg (80.0-100.0) ABG HCO3 24.8 mmol/L mmol/L (22-26) ABG Base Excess 1.1 mmol/L mmol/L (-2.0-2.0) Valentin Test Pos Hematocrit 43.3 % % (42-52) O2 Delivery Device Vent FiO2 50.0 % % Tidal Volume 0.50 PEEP 8.0 cmH20 cmH20 Machine Joint Cutter ID Gd Sodium Potassium Chloride Carbon Dioxide Anion Gap BUN Creatinine GFR Calculation Glucose POC Glucose 123 mg/dL H mg/dL 101 mg/dL mg/dL (70-110) (70-110) Calculated Osmolality Uric Acid Calcium Total Bilirubin AST ALT Alkaline Phosphatase Troponin T Baseline Troponin T 120 Minute Delta Troponin T Total Protein Albumin Globulin Urine Color Urine Appearance Urine pH Ur Specific [place] Urine Protein Urine Glucose (UA) Urine Ketones Urine Blood Urine Nitrate Urine Bilirubin Urine Urobilinogen Ur Leukocyte Esterase Urine RBC Urine WBC Ur Squamous Epith Cells Uric Acid Crystals Amorphous Sediment Urine Bacteria Urine Opiates Screen Ur Barbiturates Screen Ur Phencyclidine Scrn Ur Amphetamines Screen U Benzodiazepines Scrn Urine Cocaine Screen U Marijuana (THC) Screen Hepatitis A IgM Ab Hep Bs Antigen Hep Bs Antibody Hep B Core Total Ab Hepatitis C Antibody HIV 1&2 Ab & HIV 1 Ag HIV 1&2 Antibody 04/27/21 04/28/21 04/28/21 19:37 06:10 06:10 WBC 9.7 10^3/uL 10^3/uL (4.0-10.0) RBC 3.82 10^6/uL L 10^6/uL (4.1-5.3) Hgb 12.4 g/dL g/dL (11.7-16.6) Hct 37.5 % L % (42.0-52.0) MCV 98.2 fl H fl (80-94) MCH 32.5 pg pg (28.0-34.0) MCHC 33.1 g/dL g/dL (30.0-36.0) RDW 13.8 % % (12.1-15.1) Plt Count 298 10^3/cmm 10^3/cmm (130-400) MPV 9.8 fL fL (7.4-10.4) Neut % (Auto) 78.0 % % Lymph % (Auto) 11.5 % % Schley % (Auto) 9.2 % % Eos % (Auto) 0.6 % % Baso % (Auto) 0.2 % % Neut # (Auto) 7.58 10^3/uL 10^3/uL (1.8-7.7) Lymph # (Auto) 1.1 10^3/uL 10^3/uL (0.8-4.8) Schley # (Auto) 0.9 10^3/uL 10^3/uL (0.2-0.9) Eos # (Auto) 0.1 10^3/uL 10^3/uL (0.0-0.8) Baso # (Auto) 0.0 10^3/uL 10^3/uL (0.0-0.1) Nucleated RBC % (auto) 0 % % Nucleated RBCs # 0.0 /100WBC /100WBC PT INR APTT Specimen Type Sample Site ABG pH ABG pCO2 ABG pO2 ABG HCO3 ABG Base Excess Valentin Test Hematocrit O2 Delivery Device FiO2 Tidal Volume PEEP Machine Joint Cutter ID Sodium 143 mmol/L mmol/L (136-145) Potassium 3.5 mmol/L mmol/L (3.5-5.1) Chloride 108 mmol/L H mmol/L (98-107) Carbon Dioxide 25 mmol/L mmol/L (22-29) Anion Gap 13.5 (5-19) BUN 12 mg/dL mg/dL (6-20) Creatinine 1.2 mg/dL mg/dL (0.7-1.2) GFR Calculation 63.1 mL/min L mL/min (90-130) Glucose 117 mg/dL H mg/dL (65-115) POC Glucose 98 mg/dL mg/dL (70-110) Calculated Osmolality 297 mOsm/kg H mOsm/kg (285-295) Uric Acid Calcium 7.3 mg/dL L mg/dL (8.5-10.5) Total Bilirubin AST ALT Alkaline Phosphatase Troponin T Baseline Troponin T 120 Minute Delta Troponin T Total Protein Albumin Globulin Urine Color Urine Appearance Urine pH Ur Specific [place] Urine Protein Urine Glucose (UA) Urine Ketones Urine Blood Urine Nitrate Urine Bilirubin Urine Urobilinogen Ur Leukocyte Esterase Urine RBC Urine WBC Ur Squamous Epith Cells Uric Acid Crystals Amorphous Sediment Urine Bacteria Urine Opiates Screen Ur Barbiturates Screen Ur Phencyclidine Scrn Ur Amphetamines Screen U Benzodiazepines Scrn Urine Cocaine Screen U Marijuana (THC) Screen Hepatitis A IgM Ab Hep Bs Antigen Hep Bs Antibody Hep B Core Total Ab Hepatitis C Antibody HIV 1&2 Ab & HIV 1 Ag HIV 1&2 Antibody Discharge Plan Discharge Patient Disposition: Transfer to ED Admit Provider: Mary Ann Echeverria Clinical Impression: Altered mental status, Dislocated shoulder, Acute confusion, Grand mal status, epileptic Condition: Stable Sign Out Sign Out Data: Patient Sign Out occurred on 04/27/21 at 07:45. Patient's care was discussed, and care was transferred from to Nathan Rogers DO. Coding Level of Care Code ED Assistant Manager Retail for Raven Vasquez
--- NOTE | 2021-04-27 08:16 | P.CONIM_ITS ---
Providers/Reason For Consult Consulting Physician/Specialty*: Hospitalist service Reason for Consult*: Comanage in the ER Primary Care Provider: CELY Sanchez History of Present Illness History of Present Illness Dick Lay is a 55 year old male who was tested positive for COVID-19 a week ago on Thursday, 5 is at the bedside who is providing history, patient is intubated and sedated for DTs. Likely stating that they went to the [facility] on Thursday, they came home and after fixing supper she noticed that her was making weird noises, after a while he fell on the floor started shaking badly. They called Dr. Morrow who is their neighbor called 911. Witnessed seizure episode, it lasted for about 5 minutes. is stating that her does not smoke, drink occasionally, they have previous history of recreational drug abuse however recently no such usage. In the ER he was intubated, unsuccessful LP attempt he was given vancomycin, ceftriaxone CBC, BMP unremarkable, U tox positive for cocaine He was loaded with Keppra as well, Hospitalist service requested as a consult to comanage patient well awaiting transfer out of the ER because of lack of ICU beds I requested Dr. Trujillo to continue Keppra 1 g daily, I have added vancomycin, imipenem, currently he is requiring norepinephrine for hypotension I will request another ABG Noticed cloudy urine, requested HIV panel and hepatitis panel Review of Systems General: Reports: ROS unobtainable due to endotracheal tube Medications/Allergies Home Medications Medication Instructions Recorded Confirmed Last Taken Type hydrocodone-acetaminophen 1 tab PO Q6H PRN #14 tab 08/19/20 04/27/21 Unknown Rx lisinopril 10 mg PO DAILY 08/19/20 04/27/21 Unknown History sildenafil (pulm.hypertension) 20 - 40 mg PO PRN 08/19/20 04/27/21 Unknown History Allergies Allergy/AdvReac Type Severity Reaction Status Date / Time No Known Allergies Allergy Verified 04/26/21 21:35 Current Medications Generic Name Dose Route Start Last Admin Trade Name Freq PRN Reason Stop Dose Admin Norepinephrine Bitartrate 4 mg 254 mls @ 0 mls/hr 04/26/21 21:15 04/26/21 23:05 / Dextrose IV 2 mcg/min .Q0M RICKY 7.62 mls/hr Administration Protocol Per Protocol Propofol 1,000 mg in 100 mls @ 0 mls/hr 04/26/21 22:30 04/27/21 06:30 Diprivan IV Infused .Q0M RICKY Titration Protocol Per Protocol Propofol 1,000 mg in 100 mls @ 0 mls/hr 04/26/21 22:30 04/27/21 02:50 Diprivan IV Infused .Q0M RICKY Titration Protocol As Directed Midazolam HCl 100 mg/ Sodium 100 mls @ 0 mls/hr 04/26/21 23:00 04/27/21 07:27 Chloride IV 3 mg/hr .Q0M RICKY 3 mls/hr Administration Protocol Per Protocol PFSH Acute PFSH: Medical History (Updated 04/27/21 @ 12:22 by Mary Ann Echeverria MD) Hypertension Surgical History (Updated 04/27/21 @ 12:22 by Mary Ann Echeverria MD) No pertinent past surgical history Family History (Updated 04/27/21 @ 12:23 by Mary Ann Echeverria MD) Other No significant active problems Social History (Updated 04/27/21 @ 12:23 by Mary Ann Echeverria MD) Smoking and tobacco status: never smoked Alcohol intake: current Alcohol intake frequency: holidays/special occasions only Substance/Drug Use: former Housing: House Vitals/I&O/Wt Last Vital Signs Pulse 92 04/27/21 06:45 Resp 16 04/27/21 07:30 BP 132/81 04/27/21 06:45 Pulse Ox 97 04/27/21 06:45 04/26/21 04/27/21 04/27/21 22:59 06:59 14:59 Intake Total 310 / 310 510.000 / 510.000 Balance 310 / 310 510.000 / 510.000 Weight last 48 hrs Weight 71.668 kg Physical Exam Narrative: EXAM NARRATIVE: Middle-age male Intubated and sedated Right at the bedside Bilateral breath sounds which are assisted Abdomen soft Left femoral line which needs dressing change No signs of cyanosis or gangrene of foot No signs of edema Pupils are pinpoint S1, S2 Hemodynamically stable Urinary Catheter Management^: Chew: Cath Placed During This Visit: yes Reason for Continuing Indwelling Catheter: Accurate Measurement of Urinary Output in Critically Ill Patients Urinary Catheter Date of Insertion: 04/26/21 Urinary Catheter Time of Insertion: 23:00 A&P Assessment and plan (1) Altered mental status: Status: Acute (2) Dislocated shoulder: Status: Acute (3) Acute confusion: Status: Acute (4) Grand mal status, epileptic: Status: Acute Additional A&P Information New onset seizure CT head unremarkable Shoulder dislocation status postreduction Hypotensive related to propofol requiring vasopressors Would recommend continuing Keppra 1 g daily And add vancomycin and imipenem, unsuccessful lumbar puncture attempt, COVID-19 related encephalopathy, seizure activity? No active signs of mass, no midline shift on CT head No severe electrolyte imbalance other than hypocalcemia which I have repleted U tox positive for cocaine however patient's seems very surprised and denying recreational drug abuse of her Requested hepatitis and HIV panel DVT prophylaxis: Lovenox N.p.o. Awaiting transfer out of the ER because of lack of ICU bed availability EKG is unremarkable, troponin not significantly high Consult Attestations Medical Necessity Statement: Needs ICU transfer, outside facility Time Spent in Patient Care: Greater than 35 minutes Coding Level of Care Code Acute Business Intelligence Architect for g Fwd Diagnoses Altered mental status R41.82 Dislocated shoulder S43.006A Acute confusion R41.0 Grand mal status, epileptic G40.401
[2021-04-27] MEDS: dextrose 50% syringe 50 mL 25 ML IVP (08:42)
[2021-04-27] MEDS: calcium gluconate 0.9% NaCL 1 GM/50 ML PREMIX IV (08:46)
[2021-04-27 09:56] LABS: Uric Acid 5.6 mg/dL (3.4-7.0)
--- NOTE | 2021-04-27 10:22 | PC.NURSE ---
PATIENT RESTRAINTS MONITORED. CIRCULATION INTACT. CAP REFILL LESS THAN 3 SECONDS IN ALL FOUR EXTREMITIES.
[2021-04-27 10:32] LABS: HIV 1 & 2 Antibody Non-Reactive (Non-Reactiv); HIV 1 & 2 Antigen Non-Reactive (Non-Reactiv)
[2021-04-27 10:38] LABS: Hepatitis A Antibody IgM Non-Reactive (Nonreactive); Hepatitis B Core AB, Total Non-Reactive (Nonreactive); Hepatitis B Surface Antigen Non-Reactive (Nonreactive); Hepatitis C Virus Antibody Non-Reactive (Nonreactive)
[2021-04-27 10:43] LABS: Hepatitis B Surface AB < 3.5 (11.5-1000)
[2021-04-27] MEDS: enoxaparin 40 mg/0.4 mL Syringe SUBCUT (13:18)
[2021-04-27] MEDS: vancomycin 1,250 MG/250 ML PIGGYBACK 250 MG IV (13:18)
--- NOTE | 2021-04-27 13:25 | PC.NURSE ---
NURSE UNABLE TO ASSESS PAIN DUE TO SEDATION. SOFT RESTRAINTS CHECKED. CIRCULATION INTACT. CAP REFILL UNDER 3 SECONDS.
[2021-04-27 13:31] LABS: Glucose Point of Care 123 mg/dL (70-110)
[2021-04-27 17:35] LABS: Glucose Point of Care 101 mg/dL (70-110)
[2021-04-27 18:07] LABS: ABG PCO2 36.1 mmHg (35-45); ABG PH Result 7.45 (7.35-7.45); Arterial Blood Gas Hematocrit 43.3 % (42-52); Base Excess ABG 1.1 mmol/L (-2.0-2.0); Blood Gas Allen Test Pos; Blood Gas Operator Identificat GD; Blood Gas Sample Site Radial, left; Blood Gas Sample Type Arterial; HCO3 ABG 24.8 mmol/L (22-26); Oxygen Device VENT; PO2 ABG 72.5 mmHg (80.0-100.0)
--- NOTE | 2021-04-27 18:38 | PC.NURSE ---
UNABLE TO ASSESS PATIENT PAIN DUE TO PATIENT SEDATION. RAMIREZ CATHETER DRAINED 1000 ML OUT. SOFT RESTRAINTS CHECKED. CIRCULATION INTACT, CAP REFILL LESS THAN 3 SECONDS. PATIENT MADE COMFORTABLE.
[2021-04-27] MEDS: propofol 1,000 MG/100 ML INJ 34.4 MG IV ×2 (19:05→22:12)
[2021-04-27 20:07] LABS: Glucose Point of Care 98 mg/dL (70-110)
[2021-04-28] VITALS (74 sets, daily range): BP systolic 71–134; BP diastolic 56–88; PULSE 88–150; RESP 12–24; TEMP 37.2–38.1; O2SAT 92–96; BMI 21.4
[2021-04-28] MEDS: propofol 1,000 MG/100 ML INJ 32.25 MG IV (01:05)
[2021-04-28] MEDS: vancomycin 1,250 MG/250 ML PIGGYBACK 250 MG IV ×2 (02:15→13:49)
--- NOTE | 2021-04-28 03:09 | PC.NURSE ---
this nurse spoke with daughter of the patient on the evening of 04/27/21; she asked this nurse who was in charge of her fathers care if a medical emergency occurred. this nurse spoke with the house calls nurse and relayed to pt daughter that if a medical emergency were to occur it would be immediate family who would be the decision makers since the pt and his life partner have no legal agreement. daughter verbalized understanding.
--- NOTE | 2021-04-28 03:39 | PC.NURSE ---
Addendum entered by Brooke Bruce RN 04/28/21 03:42: accuchecks Original Note: this nurse contacted dr topete to cancel order for 2h accuchecks. since pt is not a diabetic, physician ok'd order.
--- NOTE | 2021-04-28 04:12 | PC.NURSE ---
pt bedding/ urinary cath this nurse, jonh jaimes, and esther jaimes changed pt bedding around [place] [id number]. at this time we noticed urine was leaking around the catheter so the catheter was changed out. the catheter tubing was full of sediment so it was probable there was a blockage in the catheter.
[2021-04-28] MEDS: propofol 1,000 MG/100 ML INJ 27.95 MG IV (04:26)
[2021-04-28 06:19] LABS: Basophils % 0.2 %; Eosinophils # 0.1 10^3/uL (0.0-0.8); Eosinophils % 0.6 %; Hematocrit 37.5 % (42.0-52.0); Hemoglobin 12.4 g/dL (11.7-16.6); Lymphocytes # 1.1 10^3/uL (0.8-4.8); Lymphocytes % 11.5 %; Mean Corpuscular HGB Conc 33.1 g/dL (30.0-36.0); Mean Corpuscular Hemoglobin 32.5 pg (28.0-34.0); Mean Corpuscular Volume 98.2 fl (80-94); Mean Platelet Volume 9.8 fL (7.4-10.4); Monocytes # 0.9 10^3/uL (0.2-0.9); Monocytes % 9.2 %; Neutrophils # 7.58 10^3/uL (1.8-7.7); Nucleated Red Blood Cells % 0 %; Platelet Count 298 10^3/cmm (130-400); Red Blood Count 3.82 10^6/uL (4.1-5.3); Red Cell Distribution Width 13.8 % (12.1-15.1); White Blood Count 9.7 10^3/uL (4.0-10.0)
[2021-04-28 06:36] LABS: Anion Gap 13.5 (5-19); Blood Urea Nitrogen 12 mg/dL (6-20); Calcium 7.3 mg/dL (8.5-10.5); Carbon Dioxide 25 mmol/L (22-29); Chloride 108 mmol/L (98-107); Glomerular Filtration Rate 63.1 mL/min (90-130); Glucose 117 mg/dL (65-115); Osmolality Calculated 297 mOsm/kg (285-295); Potassium 3.5 mmol/L (3.5-5.1); Sodium 143 mmol/L (136-145)
[2021-04-28] MEDS: propofol 1,000 MG/100 ML INJ 25.8 MG IV ×2 (07:58→12:30)
[2021-04-28] MEDS: propofol 1,000 MG/100 ML INJ 21.5 MG IV (16:49)
--- NOTE | 2021-04-28 17:06 | P.HP_ITS ---
Providers/Chief Complaint Primary Care Provider: CELY Sanchez Chief Complaint: stroke like symptoms History of Present Illness History of Present Illness Dick Lay is a 55 year old male who was tested positive for COVID-19 a week ago on Thursday, 5 is at the bedside who is providing history, patient is intubated and sedated for DTs. Likely stating that they went to the [facility] on Thursday, they came home and after fixing supper she noticed that her was making weird noises, after a while he fell on the floor started shaking badly. They called Dr. Morrow who is their neighbor called 911. Witnessed seizure episode, it lasted for about 5 minutes. is stating that her does not smoke, drink occasionally, they have previous history of recreational drug abuse however recently no such usage. In the ER he was intubated, unsuccessful LP attempt he was given vancomycin, ceftriaxone CBC, BMP unremarkable, U tox positive for cocaine He was loaded with Keppra as well, Hospitalist service requested as a consult to comanage patient well awaiting transfer out of the ER because of lack of ICU beds I requested Dr. Trujillo to continue Keppra 1 g daily, I have added vancomycin, imipenem, currently he is requiring norepinephrine for hypotension I will request another ABG Noticed cloudy urine, requested HIV panel and hepatitis panel Review of Systems General: Reports: ROS unobtainable due to endotracheal tube Medications/Allergies Home Medications Medication Instructions Recorded Confirmed Last Taken Type hydrocodone-acetaminophen 1 tab PO Q6H PRN #14 tab 08/19/20 04/27/21 Unknown Rx lisinopril 10 mg PO DAILY 08/19/20 04/27/21 Unknown History sildenafil (pulm.hypertension) 20 - 40 mg PO PRN 08/19/20 04/27/21 Unknown History Allergies Allergy/AdvReac Type Severity Reaction Status Date / Time No Known Allergies Allergy Verified 04/26/21 21:35 PFSH Acute PFSH: Medical History Hypertension Surgical History No pertinent past surgical history Family History Other No significant active problems Social History Smoking and tobacco status: never smoked Alcohol intake: current Alcohol intake frequency: holidays/special occasions only Substance/Drug Use: former Housing: House Vitals/I&O/Wt Last Vital Signs Temp 99 F 04/28/21 07:12 Pulse 90 04/28/21 16:00 Resp 20 H 04/28/21 16:00 BP 113/67 04/28/21 16:00 Pulse Ox 95 04/28/21 16:00 04/28/21 04/28/21 04/28/21 06:59 14:59 22:59 Intake Total 886.627 / 2523.312 388.26 / 388.26 342.808 / 731.068 Output Total 1515 / 1515 Balance 886.627 / 2523.312 -1126.74 / -1126.74 342.808 / -783.932 Weight last 48 hrs Weight 71.668 kg Physical Exam Narrative: EXAM NARRATIVE: Middle-age male Intubated and sedated FiO2 50%, PEEP 8 Minimal vent settings, Propofol 30, fentanyl 50, midazolam at 6 Norepinephrine at 2 Abdomen soft, bowel sounds sluggish Concentrated urine in the urine bag Bilateral assisted breath sounds S1, S2 Urinary Catheter Management^: Chew: Cath Placed During This Visit: yes Reason for Continuing Indwelling Catheter: Required Immobilization for Trauma or Surgery or Anesthesia Urinary Catheter Date of Insertion: 04/27/21 Urinary Catheter Time of Insertion: 22:00 Data : 04/28/21 06:10 04/28/21 06:10 Micro: Microbiology 04/27/21 07:35 Gram Stain - Final Sputum - Endotracheal Tube Aspirate Sputum Culture - Preliminary 04/27/21 09:25 Blood Culture - Preliminary Blood NEGATIVE TO DATE 04/27/21 09:21 Blood Culture - Preliminary Blood NEGATIVE TO DATE A&P Assessment and plan (1) Respiratory failure requiring intubation: Status: Acute (2) Altered mental status: Status: Acute (3) Dislocated shoulder: Status: Acute (4) Acute confusion: Status: Acute (5) Grand mal status, epileptic: Status: Acute Additional A&P Information New onset seizure CT head unremarkable Shoulder dislocation status postreduction Hypotensive related to propofol requiring vasopressors Would recommend continuing Keppra 1 g daily And add vancomycin and imipenem, unsuccessful lumbar puncture attempt, COVID-19 related encephalopathy, No active signs of mass, no midline shift on CT head No severe electrolyte imbalance other than hypocalcemia which I have repleted U tox positive for cocaine however patient's seems very surprised and denying recreational drug abuse of her Requested hepatitis and HIV panel DVT prophylaxis: Lovenox N.p.o. EKG is unremarkable, troponin not significantly high Admitted to our ICU, Start weaning trial tomorrow morning on 04/29 Turn off sedation, sedation vacation overnight start weaning trial at 4 AM No severe electrolyte imbalance Minimal vent settings Hypocalcemia: Repleted Attestations Medical Necessity Statement*: More than 2 midnights anticipated Time Spent in Patient Care: Greater than 35 minutes Coding Level of Care Code Acute Field Appraiser for [facility] Diagnoses Respiratory failure requiring intubation J96.90 Altered mental status R41.82 Dislocated shoulder S43.006A Acute confusion R41.0 Grand mal status, epileptic G40.401
[2021-04-28] MEDS: sodium chloride 0.9% 1,000 ML 999 ML IV (18:45)
--- NOTE | 2021-04-28 19:00 | PC.NURSE ---
MAR Upon assessment, versed running at 4 mg/hr and fentanyl running at 50 mcg/hr while MAR displays different rates. MAR updated to reflect administration.
[2021-04-28] MEDS: calcium gluconate 0.9% NaCL 1 GM/50 ML PREMIX IV (19:41)
[2021-04-28] MEDS: sodium chlor 0.9% + KCl 20 mEq 20 MEQ/1,000 ML BAG 75 MEQ IV (20:18)
[2021-04-28 23:01] LABS: Glucose Point of Care 106 mg/dL (70-110)
[2021-04-29] VITALS (57 sets, daily range): BP systolic 107–137; BP diastolic 64–88; PULSE 74–147; RESP 11–24; TEMP 37.2–38.2; O2SAT 72–100
--- NOTE | 2021-04-29 00:38 | PC.NURSE ---
Temperature Patient temperature 100.8 axillary. Patient's blankets removed, room temperature decreased. Will monitor.
[2021-04-29] MEDS: propofol 1,000 MG/100 ML INJ 15.05 MG IV (00:56)
[2021-04-29 01:31] LABS: Vancomycin Trough 10.1 ug/mL (10-15)
[2021-04-29] MEDS: vancomycin 1,250 MG/250 ML PIGGYBACK 250 MG IV (01:37)
--- NOTE | 2021-04-29 01:47 | PC.PHAR ---
Pharmacokinetic dosing service Date: 04/29/21 Time: 0200 Patient: Floor: Weight: 71.668 Kilograms Vancomycin single level analysis: Current dose being given: mg Current dosing interval: hrs Current infusion time (hrs): 1 Single level Trough Data: Trough level obtained: 10.1 mcg/ml Timing of trough - # of hrs before next dose: 0.08 Hrs Desired peak: 40 mcg/ml Desired trough: 15 mcg/ml Diagnosis: Relevant medical/social history: Cultures and sensitivities: Other labs: Estimated PK Parameters: New rate constant (mello): 0.090 hr-1 Half-life: 7.70 Hours Vd from levels: 64.50 Liters (0.7 L/kg) CLvanco= 5.805 L/hr Estimated New Dose and Interval Recommended dose: 1773.4 mg Recommended interval: 11.9 Hrs Patient response: Patient is responding to treatment [yes/no] wbc decreasing, S/SX reduced [yes/no] Renal function is stable/unstable Recommendations: Give Vancomycin 1500 mg q 12 hrs. Infuse over 1..5 hrs Expected Cpeak: 33.7 mcg/mL Expected Ctrough: 12.5 mcg/mL AUC 0-24 /JOSH Data: JOSH 0.5 mcg/mL: AUC/JOSH: 1033.6 JOSH 1.0 mcg/mL: AUC/JOSH: 516.8 Recommended labs and intervals: Measure Bun and Scr 3 times/week. Renal dosing of other antibiotics (review renal dosing of other medications and list guidelines here): Thank you for the consult, will continue to follow. Signature:
Lindsay Molina [facility]
[2021-04-29 03:33] LABS: Glucose Point of Care 105 mg/dL (70-110)
--- NOTE | 2021-04-29 03:35 | PC.NURSE ---
Family Updates Son, Alessio Lay, and life partner, Portia, called at 2100 and 2200 respectively, both receiving updates on patient. Son requested drug testing to verify previous results; Dr. Cardenas contacted and received order for secondary testing. Both family members verbalized understanding and stated no further questions.
[2021-04-29 03:48] LABS: ABG PCO2 42.9 mmHg (35-45); ABG PH Result 7.39 (7.35-7.45); Arterial Blood Gas Hematocrit 34.8 % (42-52); Base Excess ABG 0.6 mmol/L (-2.0-2.0); Blood Gas Allen Test Pos; Blood Gas Sample Site Radial, right; Blood Gas Sample Type Arterial; HCO3 ABG 25.8 mmol/L (22-26); Oxygen Device VENT; PO2 ABG 74.5 mmHg (80.0-100.0)
[2021-04-29 04:55] LABS: Basophils % 0.3 %; Eosinophils % 0.4 %; Hematocrit 33.9 % (42.0-52.0); Lymphocytes # 0.9 10^3/uL (0.8-4.8); Lymphocytes % 8.5 %; Mean Corpuscular HGB Conc 32.4 g/dL (30.0-36.0); Mean Corpuscular Hemoglobin 32.2 pg (28.0-34.0); Mean Corpuscular Volume 99.1 fl (80-94); Mean Platelet Volume 10.1 fL (7.4-10.4); Monocytes # 0.9 10^3/uL (0.2-0.9); Monocytes % 8.3 %; Neutrophils # 8.49 10^3/uL (1.8-7.7); Nucleated Red Blood Cells % 0 %; Platelet Count 228 10^3/cmm (130-400); Red Blood Count 3.42 10^6/uL (4.1-5.3); Red Cell Distribution Width 13.9 % (12.1-15.1); White Blood Count 10.4 10^3/uL (4.0-10.0)
[2021-04-29 05:12] LABS: Amphetamines Screen Urine Negative (Negative); Barbiturates Screen Urine Negative (Negative); Benzodiazepines Screen Urine Negative (Negative); Cocaine Screen Urine Negative (Negative); Opiate Screen Urine Positive (Negative); PCP Screen Urine Negative (Negative); THC Screen Urine Negative (Negative)
[2021-04-29 05:24] LABS: Blood Urea Nitrogen 14 mg/dL (6-20); Calcium 6.9 mg/dL (8.5-10.5); Carbon Dioxide 21 mmol/L (22-29); Chloride 111 mmol/L (98-107); Glomerular Filtration Rate 87.9 mL/min (90-130); Glucose 105 mg/dL (65-115); Magnesium 2.5 mg/dL (1.7-2.3); Osmolality Calculated 299 mOsm/kg (285-295); Phosphorus 2.8 mg/dL (2.5-4.5); Prolactin 15.01 ng/mL (4.0-15.2); Sodium 144 mmol/L (136-145)
[2021-04-29] MEDS: propofol 1,000 MG/100 ML INJ 17.2 MG IV ×2 (06:22→11:48)
[2021-04-29 07:33] LABS: Glucose Point of Care 105 mg/dL (70-110)
[2021-04-29] MEDS: dexamethasone 10 mg/mL INJ 6 MG IVP (08:27)
[2021-04-29] MEDS: folic acid 1 mg Tablet PO (08:27)
[2021-04-29] MEDS: calcium gluconate 0.9% NaCL 1 GM/50 ML PREMIX IV (08:28)
[2021-04-29] MEDS: remdesivir 200 MG in sodium chloride 0.9% (100 ml) 60 ML 100 MG IV (08:37)
--- NOTE | 2021-04-29 09:23 | PM.PN ---
Subjective Subjective: Interval history: FiO2 30% PEEP 8 Off vasopressors Afebrile No CBC or BMP abnormality noted Plan to extubate him today Weaning trial Updated RN and the RT Continue IV Keppra Start Precedex and wean off propofol and fentanyl, midazolam turned off this morning Urine output and color improved with fluid bolus yesterday Vitals/I&O/Wt Last Vital Signs Temp 98.9 F 04/29/21 07:00 Pulse 81 04/29/21 08:15 Resp 14 04/29/21 06:00 BP 108/64 04/29/21 08:15 Pulse Ox 94 04/29/21 08:15 04/28/21 04/29/21 04/29/21 22:59 06:59 14:59 Intake Total 2019.442 / 2407.702 475.943 / 2883.645 Output Total 300 / 1815 575 / 2390 Balance 1719.442 / 592.702 -99.057 / 493.645 Weight last 48 hrs Weight 71.668 kg Physical Exam Narrative: EXAM NARRATIVE: Patient intubated and sedated Normal hemodynamically Off vasopressors Looks euvolemic S1, S2 sinus rhythm Neuro exam limited Bilateral assisted breaths on Abdomen soft No signs of edema Urinary Catheter Management^: Chew: Cath Placed During This Visit: yes Reason for Continuing Indwelling Catheter: Accurate Measurement of Urinary Output in Critically Ill Patients Urinary Catheter Date of Insertion: 04/27/21 Urinary Catheter Time of Insertion: 22:00 Data : 04/29/21 04:10 04/29/21 04:10 Micro: Microbiology 04/27/21 07:35 Gram Stain - Final Sputum - Endotracheal Tube Aspirate Sputum Culture - Preliminary 04/27/21 09:25 Blood Culture - Preliminary Blood NEGATIVE TO DATE 04/27/21 09:21 Blood Culture - Preliminary Blood NEGATIVE TO DATE A&P Assessment and plan (1) Respiratory failure requiring intubation: Status: Acute (2) Altered mental status: Status: Acute (3) Dislocated shoulder: Status: Acute (4) Acute confusion: Status: Acute (5) Grand mal status, epileptic: Status: Acute Additional A&P Information Today my plan is to do sedation vacation, weaning trial and then extubate Off vasopressors since yesterday Responded very well to 1 L bolus that I gave yesterday which improved urine output and blood pressure Continue Keppra Continue broad-spectrum antibiotics and de-escalate by tomorrow if stays afebrile Reassess neurological status, no significant leukocytosis or febrile episodes, meningitis was another one of her differentials with new onset of seizures Dislocated shoulder status post reduction Speech therapy after extubation He has not eaten in the last 48 hours Blood sugar is normal Repeat drug screen did not reveal cocaine, earlier false positive result? Continue DVT prophylaxis Start feeding him today after speech therapy We will update his Will need outpatient neurology follow-up For COVID-19, start Decadron and remdesivir Attestations Medical Necessity Statement*: Extubated today Time Spent in Patient Care: 16 - 35 minutes Coding Level of Care Code Acute Hobbies [employer] Crafts Sales Representative for [facility] Fwd Diagnoses Respiratory failure requiring intubation J96.90 Altered mental status R41.82 Dislocated shoulder S43.006A Acute confusion R41.0 Grand mal status, epileptic G40.401
--- NOTE | 2021-04-29 10:03 | DCPLANNER ---
Addendum entered by Nivia Champagne 04/30/21 06:48: This referral was cancelled due to that patient . Original Note: senior center manager had message to schedule a follow up appointment for patient with ortho. senior center manager emailed patients information to Lucia Santos at ortho. Patients information will be printed and reviewed. Clinic will call patient with appointment information.
[2021-04-29 10:12] LABS: Parathyroid Hormone 88.9 pg/mL (15-65)
[2021-04-29 10:22] LABS: 25 Hydroxy Vitamin D 16 ng/mL (30-100)
--- NOTE | 2021-04-29 12:39 | XR_ITS ---
WS: [id number] Exam: XR chest 1V portable [id number] Date/Time of Exam: 04/29/2021 12:42 PM Reason For Exam: Intubated/possible pneumonthorax, O2 sats declining. Comparison 04/26/2021. An ET tube has been placed and ends at about the level of T4 in good position. The lungs are well dale tilated as visualized. Heart size is normal. An enteric tube is looped in the stomach. Monitoring rashmi ds are seen over the left lower chest and upper left abdomen. Mild bilateral plaque atelectasis. XR/XR chest 1V portable [id number] IMPRESSION: 1. ET tube in satisfactory position. Enteric tube looped in the stomach. 2. No acute cardiopulmonary finding.
[2021-04-29] MEDS: EPINEPHrine 2.5 MG in sodium chloride 0.9% 250 ML 434.31 MG IV (12:40)
[2021-04-29] MEDS: LORazepam 2 mg/mL INJ 1 mL 1 MG IVP (13:40)
[2021-04-29] MEDS: morphine 4 mg/mL SDV 1 mL 2 MG IVP (13:40)
[2021-04-29 13:44] LABS: Basophils # 0.1 10^3/uL (0.0-0.1); Basophils % 0.6 %; Eosinophils % 0.2 %; Hematocrit 35.1 % (42.0-52.0); Hemoglobin 10.6 g/dL (11.7-16.6); Lymphocytes # 2.4 10^3/uL (0.8-4.8); Lymphocytes % 22.2 %; Mean Corpuscular HGB Conc 30.2 g/dL (30.0-36.0); Mean Corpuscular Hemoglobin 32.6 pg (28.0-34.0); Mean Platelet Volume 10.3 fL (7.4-10.4); Monocytes # 0.5 10^3/uL (0.2-0.9); Monocytes % 4.4 %; Neutrophils # 7.25 10^3/uL (1.8-7.7); Neutrophils % 67.3 %; Nucleated Red Blood Cells % 0.4 %; Platelet Count 129 10^3/cmm (130-400); Red Blood Count 3.25 10^6/uL (4.1-5.3); Red Cell Distribution Width 14.1 % (12.1-15.1); White Blood Count 10.8 10^3/uL (4.0-10.0)
[2021-04-29 13:51] LABS: Anion Gap 24.7 (5-19); Blood Urea Nitrogen 13 mg/dL (6-20); Calcium 6.9 mg/dL (8.5-10.5); Carbon Dioxide 15 mmol/L (22-29); Chloride 115 mmol/L (98-107); Glomerular Filtration Rate 77.9 mL/min (90-130); Glucose 141 mg/dL (65-115); Osmolality Calculated 314 mOsm/kg (285-295); Potassium 3.7 mmol/L (3.5-5.1); Sodium 151 mmol/L (136-145)
--- NOTE | 2021-04-29 14:05 | PM.EVENT ---
Event Note Event Note: RENATE GABRIEL was called around noon on 04/29, details written in my summary
[2021-04-29 14:07] LABS: Glucose Point of Care 118 mg/dL (70-110)
--- NOTE | 2021-04-29 14:11 | P.DES_ITS ---
Discharge Providers DDS Date of Admission: 04/28/21 17:27 Date Summary Completed: 04/29/21 Attending Provider at Admission: Mary Ann Echeverria MD Time of : 14:00 Attending Provider at Discharge: Mary Ann Echeverria MD Primary Care Provider: CELY Sanchez Diagnoses Hospital Diagnoses (1) Respiratory failure requiring intubation: (2) Altered mental status: (3) Dislocated shoulder: (4) Acute confusion: (5) Grand mal status, epileptic: Reason for Visit Reason for Visit: stroke like symptoms Summary Date and Time of Date of : 04/29/21 Time of : 14:00 Summary Summary: Patient was evaluated in the ER on 04/26, he got intubated because of worsening encephalopathy related to seizure postictal state, he was kept in the ER for about 40+ hours, ER was unsuccessful to secure a bed in a outside facility, he was admitted on 04/28 to ICU, no severe electrolyte abnormalities were noted except hypocalcemia, recently he was diagnosed with COVID-19 infection, on 04/29 morning he was saturating 90- 91% on 35% FiO2, he was not requiring vasopressors anymore, his midazolam was turned off and propofol was being titrated off, decision was made to add Precedex and wean off sedatives (however Precedex was never initiated before the code). As per the RT before she was about to start weaning trial patient was able to open his eyes during sedation vacation, suddenly he became diaphoretic, his hypoxia worsened, FiO2 was increased to 100% on the vent, hypoxia did not improve, that resulted in change in rhythm from his sinus to bradycardia and PEA. CODE GABRIEL was called when no pulse was detected. CPR initiated right away by myself, CODE BLUE was initiated at 1252, multiple doses of epinephrine, calcium chloride, bicarb were pushed for pulseless electrical activity. We were able to achieve ROSC but it was transient and we lost pulse intermittently, twelve-lead EKG did not show CT, chest x-ray did not show tension pneumothorax, there was no wide variation of QRS complexes, we were not able to obtain perfusable blood pressure, his hypoxia did not improve at all, twelve-lead EKG showed A. fib with aberrant conduction, amiodarone bolus was pushed, he was started on amio drip for wide-complex tachyarrhythmia, tPA for PE protocol pursued, Dr. Gu also present in the room who assisted me during this long ACLS code. Son was at the bedside who decided to stop the code at 1341. He was made comfort care, he received morphine and Ativan, he at 1400 Additional Data Confirmation of as documented by pronouncing clinician: no pulse, no respirations, no heart sounds and pupils fixed and dilated Family: at bedside Additional persons at bedside: nursing staff and senior graduate advisor Attending/PCP notified?: Attending notified Was code activated?: Yes Autopsy requested?: No Advance directives?: Yes Hospice patient?: No Discharge Plan Discharge Patient Disposition: Home Condition: Stable Prescriptions: No Action lisinopril 10 mg tablet 10 mg PO DAILY RF: 0 sildenafil (pulm.hypertension) 20 mg tablet 20 - 40 mg PO PRN RF: 0 hydrocodone-acetaminophen 7.5-325 mg tablet 1 tab PO Q6H PRN (Reason: pain) Qty: 14 RF: 0 Referrals: Laura Davidson FNP [Primary Care Provider] - Patient Instructions: Opioid Safety DS Attestations Time Spent in /Discharge Care*: less than 30 min Quality - AMI: AMI present?: No Quality - Stroke: CVA present?: No Quality - VTE: VTE present?: No Coding Level of Care Code Acute Reliability Technician for Chg Fwd Diagnoses Respiratory failure requiring intubation J96.90 Altered mental status R41.82 Dislocated shoulder S43.006A Acute confusion R41.0 Grand mal status, epileptic G40.401
[2021-04-29 14:28] LABS: Slide Review Slide Review Perform
--- NOTE | 2021-04-29 16:06 | PC.NURSE ---
Yomaira wasted with Cole HOWARD
[2021-04-29 16:10] LABS: ABG PCO2 80.8 mmHg (35-45); ABG PH Result 7.25 (7.35-7.45); Alveolar-Arterial Oxygen Gradi 74.5 mmHg (5-10); Arterial Blood Gas Hematocrit 35.8 % (42-52); Base Excess ABG 5.5 mmol/L (-2.0-2.0); Blood Gas Allen Test Pos; Blood Gas Operator Identificat CAK; Blood Gas Sample Site Brachial, right; Blood Gas Sample Type Arterial; Carboxyhemoglobin 0.2 %THgb (0.4-20.1); HCO3 ABG 35.1 mmol/L (22-26); HGB O2 Sat 75.3 % (95-100); Ionized Calcium Level - ABG 1.1 mmol/L (1.1-1.4); Methemoglobin < 0.0 % (0.4-1.5); Oxygen Device AMBU; Oxygen Saturation ABG 74.9; PO2 ABG 48.7 mmHg (80.0-100.0); Potassium Level - ABG 5.5 mmol/L (3.5-5.0); Total Hemoglobin 11.7 g/dL (14-18)
[2021-04-29 16:45] LABS: Glucose Point of Care 130 mg/dL (70-110)
--- NOTE | 2021-04-29 16:58 | PC.NURSE ---
At approximately 1230 this nurse and RT were in the patients room addressing oxygen saturation in the mid 70's. The patient became diaphoretic and rhythm a change was noticed. The patient entered into bradycardia. Crash cart was brought in and pads placed, blood sugar taken and EKG machine brought in. Cecilio gao called at 1239. See cecilio gao form for details. TOD: [id number]
== END 2021-04-29 14:00 | disposition expired | DRG 100 ==
LOC: ER 04-28 08:04 → ICU 04-28 17:29
PROVIDERS: Emergency Medicine; Hospitalist; Admitting Provider Internal Medicine; Emergency Provider Family Medicine; PCP Nurse Practitioner; Visit Provider Internal Medicine
DX: G40.409 Other generalized epilepsy and epileptic syndromes, not intractable, without status epilepticus (principal); U07.1 COVID-19; J96.90 Respiratory failure, unspecified, unspecified whether with hypoxia or hypercapnia; G93.49 Other encephalopathy; I46.9 Cardiac arrest, cause unspecified; S43.015A Anterior dislocation of left humerus, initial encounter; W18.30XA Fall on same level, unspecified, initial encounter; I95.2 Hypotension due to drugs; T41.295A Adverse effect of other general anesthetics, initial encounter; I10 Essential (primary) hypertension; E83.51 Hypocalcemia; Z51.5 Encounter for palliative care; I48.91 Unspecified atrial fibrillation
CPT/HCPCS: 36415; 36416; 36600; 51702; 70450; 70496; 70498; 71045; 71275; 73020; 73030; 80048; 80051; 80053; 80202; 80306; 81001; 82306; 82310; 82330; 82803; 82805; 82962; 83735; 83970; 84100; 84146; 84484; 84550; 85025; 85610; 85730; 86705; 86706; 86709; 86803; 87040; 87070; 87205; 87340; 87806; 93005; 94002; 94003; 94799; 96365; 96366; 96367; 96368; 96372; 96375; 99291; 99292; C1751; J0171; J0282; J0330; J0610; J0696; J0743; J1100; J1650; J1885; J1953; J2060; J2250; J2270; J2704; J2997; J3010; J3370; J3411; J3490; J7030; J7050; J7060; Q9967